=== PATIENT | female | born 1935 | race Caucasian/White ===

== ENCOUNTER 2016-11-22 09:39 | Inpatient (IN) | payer MEDICARE ==
[2016-11-22 10:51] LABS: Hematocrit 46 % (35-47); Hemoglobin 15.3 g/dl (12.0-16.0); Mean Corpuscular HGB Conc 34 g/dl (31-36); Mean Corpuscular Hemoglobin 31 pg (27-31); Mean Corpuscular Volume 92 fL (80-97); Mean Platelet Volume 9 um3 (7.4-10.4); Red Blood Count 4.94 10^6/ul (4.0-5.4); Red Cell Distribution Width 14 % (10.5-15)
[2016-11-22 11:12] LABS: ALT 54 U/L (7-52); Albumin 3.1 g/dL (3.2-5.2); Alkaline Phosphatase 165 U/L (34-104); BUN/Creatinine Ratio 44.6 (8-20); Blood Urea Nitrogen 37 mg/dL (6-24); C Reactive Protein 103.49 mg/L (< 5.00); CO2 Carbon Dioxide 20 mmol/L (22-32); Calcium 9.5 mg/dL (8.6-10.3); Chloride 110 mmol/L (101-111); EGFR African American 85.3 (>60); EGFR Non-African American 66.3 (>60); Globulin 4.7 g/dL (2-4); Glucose 133 mg/dL (70-100); Sodium 142 mmol/L (133-145); Total Protein 7.8 g/dL (6.4-8.9)
[2016-11-22 11:17] LABS: Urine Bacteria Absent (Absent); Urine Bilirubin Negative (Negative); Urine Glucose Negative (Negative); Urine Nitrite Negative (Negative)
[2016-11-22 11:18] LABS: Troponin I 0.52 ng/mL (<0.04)
[2016-11-22 11:21] LABS: Anion Gap 12 mmol/L (2-11)
[2016-11-22] MEDS ORDERED: NS 0.9% 1000 ML* 2,500 ML IV ONE (11:25)
[2016-11-22] MEDS ORDERED: Vancomycin(*) 1,500 MG in NS 0.9% 250 ML* 250 ML IVPB ONE (11:26)
[2016-11-22] MEDS ORDERED: Iohexol 300* (CONTRAST) 10 ML SDV IV ONE (11:35)
[2016-11-22 11:39] LABS: TSH (Thyroid Stimulating Horm) 2.47 mcIU/mL (0.34-5.60)
--- NOTE | 2016-11-22 11:51 | RAD ---
HISTORY: Altered mental status, confusion, sepsis COMPARISONS: February 06, 2010 VIEWS: 1: frontal portable view of the chest at 11:30 AM FINDINGS: LINES AND TUBES: None. CARDIOMEDIASTINAL SILHOUETTE: The cardiomediastinal silhouette is normal for portable technique. PLEURA: The costophrenic angles are sharp. No pleural abnormalities are noted. LUNG PARENCHYMA: The lungs are clear. ABDOMEN: The upper abdomen is clear. There is no subphrenic gas. BONES AND SOFT TISSUES: No bone or soft tissue abnormalities are noted. IMPRESSION: NO ACTIVE CARDIOPULMONARY DISEASE.
[2016-11-22 12:24] LABS: Magnesium 2.3 mg/dL (1.9-2.7)
--- NOTE | 2016-11-22 12:26 | RAD ---
HISTORY: Altered mental status, confusion COMPARISONS: None TECHNIQUE: Multiple contiguous axial CT scans were obtained of the head without intravenous contrast. FINDINGS: HEMORRHAGE/INFARCT: There is no hemorrhage or acute infarct. MASSES/SHIFT: There is no mass or shift. EXTRA-AXIAL SPACES: There are no extra-axial fluid collections. SULCI AND VENTRICLES: There is diffuse and proportional enlargement of the sulci and ventricles. CEREBRUM: There is hypoattenuation of the periventricular and subcortical white matter. BRAINSTEM: There are no focal parenchymal abnormalities. CEREBELLUM: There are no focal parenchymal abnormalities. VESSELS: The vessels are grossly normal. PARANASAL SINUSES: The paranasal sinuses are clear. ORBITS: The orbits are unremarkable. BONES AND SOFT TISSUE: No bone or soft tissue abnormalities are noted. OTHER: None IMPRESSION: NO ACUTE INTRACRANIAL PATHOLOGY. DIFFUSE INVOLUTIONAL CHANGE WITH CHRONIC SMALL VESSEL ISCHEMIC CHANGES.
[2016-11-22] MEDS ORDERED: NS 0.9% 250 ML* 500 ML ONE (12:43)
[2016-11-22 12:45] LABS: PCO2 Arterial 30 mmHg (35-45)
--- NOTE | 2016-11-22 12:50 | RAD ---
INDICATION: Sepsis and abdominal pain. COMPARISON: Comparison is made with a prior CT of the abdomen and pelvis from July 16, 2009. TECHNIQUE: A CT scan of the abdomen and pelvis was performed with intravenous and without oral contrast following intravenous injection of 100 ml of Omnipaque 300 nonionic contrast. Contiguous axial sections were obtained from the lung bases through the symphysis pubis. Images were reconstructed in the coronal and sagittal planes. FINDINGS: There are small dependent bilateral lower lobe infiltrates suggestive of atelectasis. No pleural effusion is present. The liver and spleen are within normal limits in size without significant focal abnormality. No calcified gallstones are seen. The pancreas appears to be within normal limits in size. The kidneys and adrenal glands are normal in size. No hydronephrosis is seen. No significant focal renal abnormality is seen. The aorta is normal in caliber and demonstrates homogeneous contrast opacification. The inferior vena cava is collapsed suggestive of low volume status. No significant enlarged retroperitoneal lymph nodes are seen. The stomach, small and large bowel appear nondistended. The patient is status post appendectomy by history. There is mild descending and sigmoid diverticulosis without evidence for diverticulitis. The uterus is retroverted and normal in size. No free intraperitoneal air or fluid is seen. There appears to be a chronic moderate compression fracture of the superior endplate of the L2 vertebral body and a subacute compression fracture of the inferior endplate of the L4 vertebral body. IMPRESSION: 1. NO EVIDENCE FOR ACUTE INTRA-ABDOMINAL ABNORMALITY OR CAUSE FOR THE PATIENT'S ABDOMINAL PAIN IS SEEN. 2. COLLAPSED INFERIOR VENA CAVA SUGGESTIVE OF LOW VOLUME STATUS. 3. SUBACUTE COMPRESSION FRACTURE OF THE INFERIOR ENDPLATE OF THE L4 VERTEBRAL BODY.
[2016-11-22 13:00] LABS: TSH (Thyroid Stimulating Horm) 2.39 mcIU/mL (0.34-5.60)
[2016-11-22 13:01] LABS: Free T4 1.16 ng/dL (0.61-1.12)
--- NOTE | 2016-11-22 15:31 | RAD ---
HISTORY: L4 fracture, incontinence COMPARISONS: CT dated November 22, 2016 TECHNIQUE: The following sequences were obtained of the lumbar spine: Sagittal and axial T1- and T2-weighted images, coronal T2-weighted images, and sagittal STIR images. FINDINGS: The study is limited by patient motion artifact. SPINAL CORD, CONUS, AND CAUDA EQUINA: The visualized spinal cord, conus, and cauda equina are normal in caliber, position, and signal intensity. ALIGNMENT: There is a mild scoliotic curvature of the spine. VERTEBRAL BODIES: There are Modic type I reactive end the changes at L4-L5. There is a large Schmorl's node versus chronic compression deformity of L2. There is no osseous retropulsion. There is multilevel anterolateral marginal osteophyte formation JOINTS: There is facet hypertrophy diffusely. MUSCULATURE: Unremarkable INTERVERTEBRAL DISCS: There is diffuse loss of intervertebral disc height and T2 signal throughout the spine. AXIAL IMAGES: L1-L2: There is bilateral facet hypertrophy. There is moderate left neural foraminal narrowing. There is no significant central canal stenosis.. L2-L3: There is a broad-based disc bulge with facet and ligamentous hypertrophy. There is moderate bilateral neural foraminal narrowing. There is moderate narrowing of the central canal. L3-L4: There is a broad-based disc bulge with ligamentous and facet hypertrophy. There is moderate bilateral neural foraminal narrowing. There is severe narrowing of the central canal. L4-L5: There is broad-based disc bulge. There is marginal osteophyte formation at the neural foramen bilaterally. There is severe bilateral neuroforaminal narrowing. There is no significant central canal stenosis. L5-S1: There is bilateral facet hypertrophy. There is no disc herniation, spinal stenosis, or neuroforaminal narrowing. SOFT TISSUES: The visualized soft tissues of the abdomen are unremarkable. OTHER: None. IMPRESSION: 1. DEGENERATIVE DISC DISEASE AND OSTEOARTHRITIS. 2. THERE IS SEVERE NARROWING OF THE CENTRAL CANAL AT L3-L4 WITH MODERATE NARROWING AT L2-L3. 3. THERE IS MULTILEVEL NEURAL FORAMINAL NARROWING DESCRIBED ABOVE
[2016-11-22] MEDS ORDERED: Diltiazem IV* 5 MG/ML 5 ML VIAL (for loading dose/IV Push) (25 MG) IV SLOW PU ONE ×3 (15:36→17:22)
[2016-11-22] MEDS ORDERED: Metoprolol Tartrate IV* 1 MG/ML 5 ML VIAL IV PRN (18:13)
[2016-11-22] MEDS ORDERED: NS 0.9% 1000 ML* 1,000 ML IV ONE (18:13)
[2016-11-22] MEDS ORDERED: Metoprolol Tartrate IV* 1 MG/ML 5 ML VIAL IV ONE (18:55)
[2016-11-22] MEDS ORDERED: Metoprolol Tartrate IV* 1 MG/ML 5 ML VIAL ONE (19:04)
[2016-11-22] MEDS: predniSONE TAB* 10 MG PO SCH (23:04)
[2016-11-22] MEDS: KCL 20 MEQ/100 ML IVPREMIX* 20 MEQ/100 ML BAG IV SCH (23:07)
[2016-11-22] MEDS: Heparin VIAL(*) 5000 UNITS/ML VIAL (FIVE THOUSAND) SUBCUT SCH (23:07)
--- NOTE | 2016-11-22 23:32 | HP ---
HISTORY AND PHYSICAL: DATE OF ADMISSION: 11/22/16 HISTORY OF PRESENT ILLNESS: Vern Bobo is a 81-year-old woman admitted to the hospital with new onset atrial fibrillation which converted in the emergency room, diffuse pain and unwillingness to get out of bed, worsening mental status and elevated CRP and dehydration. The patient has known Alzheimer 's disease. She was in her usual state of health until about 9 days ago. She and her went out to dinner and he states she was quieter than usual. After going to bed that night, she has not gotten out of bed since then. She seems to have diffuse pain and has been sleeping much of the time. She has been eating but not very much. Recent changes in her medication regimen, she had been started on alendronate in September and her sertraline had been increased to 100 mg a day because of obsessive behavior (from 75 mg a day). She had had a urinalysis on 11/08/16 when she was seen in the office, which was felt to be not a clean catch and so was not cultured. With change in mental status recently, she was treated with Cipro for 5 days with the thought that she might have a urinary tract infection. Because of these symptoms, I visited her at home yesterday. At that time, she complained of pain with any kind of movement. She was alert, smiling. No clear site of infection could be found. She did have a stage I decubitus ulcer. I bibi blood, which did show a markedly elevated CRP and so I suggested that she come to the emergency room today. When I saw her yesterday, she was noted to have an irregular heart rate and today she is in atrial fibrillation. In the ER, she was given diltiazem and Lopressor and has converted to normal sinus rhythm. She is admitted at this time. PAST MEDICAL HISTORY: Otherwise significant for the following medical problems: 1. Alzheimer's disease. 2. Hypothyroidism. 3. Osteopenia/osteoporosis with history of L2 compression fracture noted on . 4. History of anxiety disorder. 5. History of depression. 6. Diverticulosis. 7. History of allergies. 8. Internal hemorrhoids. 9. History of low back pain. 10. She has also been thought to have peripheral neuropathy in the past. PAST SURGICAL HISTORY: Includes appendectomy. CURRENT MEDICATIONS: 1. Cipro 250 mg twice a day for 5 days, started on 11/18/16. 2. Alendronate 70 mg weekly, started on 10/05/16. 3. Sertraline 100 mg daily. 4. Donepezil 10 mg daily. 5. Levothyroxine 75 mcg daily. 6. Vitamin C 500 mg daily. 7. Ibuprofen as needed. 8. Vitamin E 400 units daily. 9. Vitamin D3 1000 units daily. 10. Vitamin B complex with C 1 daily. ALLERGIES: EFFEXOR caused diarrhea, ERYTHROMYCIN caused diarrhea, and SULFA. HABITS: Tobacco, none. She is a former smoker, having smoked 2 cigarettes a day for 5 years many many years ago. She stopped smoking in 1958. She generally has 1 to 2 drinks of alcohol per day, not recent. She does not drink caffeinated beverages. FAMILY HISTORY: Noncontributory. SOCIAL AND PERSONAL HISTORY: The patient lives in her own home with her . An adult son lives in the home as well. There are 2 grandsons who were living with them until they went off to college this year. She is recently , just yesterday acquired a home health aide. REVIEW OF SYSTEMS: Generally, she has been weak, lying in bed. Appetite has not been her normal. She has not had fevers, chills, or sweats. Skin: She has been noted to have a stage I decubitus ulcer of her buttocks. HEENT: Negative. Nodes: Negative. Heme: Negative. Endocrine: She has hypothyroidism. Breasts: Negative. Respiratory: Negative. Cardiovascular: Negative. GI: Negative. : She has been incontinent of urine occasionally in the past, consistently in the past 9 days. Musculoskeletal: Everything seems to hurt. Neuro: See above. Psychiatric: See above. PHYSICAL EXAMINATION GENERAL: She is an elderly white female, lying flat in the bed, in no acute distress. VITAL SIGNS: Initial blood pressure on coming to the ER 91/75. Blood pressure has ranged from 76-159/58-112. Heart rate has ranged from 65 to 145 in the ER. Respirations 20, temperature afebrile, O2 sat 96%. SKIN: Shows a 1 x 2 cm stage I ulcer of the right buttocks. HEENT: Atraumatic, normocephalic. Full EOMs. Mouth: Pharynx, mucous membranes slightly dry. NECK: Supple. Thyroid palpable. Nodes, no adenopathy. CHEST: Clear. HEART: Initially irregularly irregular, then regular. No murmurs, gallops, or rubs. Pulses are full throughout. ABDOMEN: Soft with mild bilateral lower quadrant tenderness without masses or organomegaly. Bowel sounds are active. EXTREMITIES: Showed no cyanosis, clubbing, or edema. MUSCULOSKELETAL: She calls out with pain with movement of all of her extremities, but full range of motion of hips, no evidence of fracture. NEUROLOGIC: She is alert, not oriented. Cranial nerves seem intact. She does move all extremities. Sensory exam could not be performed. DTRs are 3+ symmetric with clonus. Babinski sign negative. She did not get up to walk. DIAGNOSTIC STUDIES/LAB DATA: CBC: WBC 14, H and H 15.3/46, MCV 92, PLT 230, 000. Yesterday, white count was 12.9 and hematocrit was 45. ABGs: pH 7.50, pCO2 30, pO2 67. Chemistries: Sodium 142, potassium 3.4, chloride 100, CO2 20 , BUN/creatinine 37/0.83. Glucose 133, lactic acid 1.8, magnesium 2.3. Rest of the comprehensive metabolic panel was abnormal for AST 36, ALT 54, alk phos 165. Troponins are 0.52, repeat 0.42. BNP 177. Globulin elevated at 4.7. TSH normal at 2.47, free T4 1.16. Imaging: Brain CT showed no acute intracranial pathology, diffuse involutional change with chronic small vessel disease. Chest x-ray showed no acute disease. Abdomen and pelvis CT showed no acute disease. She did have a collapsed inferior vena cava suggesting of low volume status and subacute compression fracture of the inferior end-plate of the L4 vertebral body. She did have bilateral lower lobe infiltrate suggestive of atelectasis, but no pleural effusion was seen. There was no evidence of pneumonia. She did have diverticulosis without diverticulitis. Lumbar spine MRI showed degenerative disk disease and osteoarthritis. She did have spinal stenosis at L3-4 and moderate narrowing at L2-3. EKG at 1139 showed atrial fibrillation with uncontrolled ventricular response and EKG at 1003 showed she had converted to sinus rhythm. IMPRESSION: The patient with recent decline in physical status and mental status in the setting of fairly significant Alzheimer's disease. She had transient atrial fibrillation in the emergency room, which converted to sinus rhythm after getting multiple doses of diltiazem and then metoprolol. Her diffuse pain may be due to polymyalgia rheumatica. This would explain her elevated CRP. She does have volume depletion. She is going to have her volume repleted. She is going to get IV fluids. We will replete her potassium. The plan is to monitor on telemetry now. A transthoracic echocardiogram has been ordered. I will give her Lopressor [id number], hold for pulse less than 60. Her troponins will be followed, but already trending downwards. She will get heparin for DVT prophylaxis. MOLST form was completed with her and she is DNR/DNI. I am going to give her a small dose of prednisone to see how she responds to that. Her globulins are elevated. I will do serum protein electrophoresis immunofixation. I will follow her sed rate. I will follow her C-reactive protein. I have ordered a physical therapy evaluation for the morning. Tegaderm will be used for her stage I ulcer. [id number]/[facility] #: [id number] [place]
[2016-11-23] MEDS: KCL 20 MEQ/100 ML IVPREMIX* 20 MEQ/100 ML BAG IV SCH (01:07)
[2016-11-23] MEDS: NS 0.9% w/ 20 Meq KCL 1000 ML* 1,000 ML IV SCH ×2 (03:16→14:22)
[2016-11-23 05:25] LABS: Hematocrit 39 % (35-47); Hemoglobin 12.9 g/dl (12.0-16.0); Mean Corpuscular HGB Conc 33 g/dl (31-36); Mean Corpuscular Hemoglobin 31 pg (27-31); Mean Corpuscular Volume 94 fL (80-97); Mean Platelet Volume 9 um3 (7.4-10.4); Red Blood Count 4.12 10^6/ul (4.0-5.4); Red Cell Distribution Width 14 % (10.5-15)
[2016-11-23 05:36] LABS: Albumin 2.7 g/dL (3.2-5.2); BUN/Creatinine Ratio 38.4 (8-20); C Reactive Protein 67.42 mg/L (< 5.00); Calcium 8.5 mg/dL (8.6-10.3); EGFR African American 98.9 (>60); EGFR Non-African American 76.9 (>60); Globulin 3.3 g/dL (2-4); Magnesium 2.1 mg/dL (1.9-2.7); Phosphorus 2.8 mg/dL (2.5-5.0); Potassium 3.9 mmol/L (3.5-5.0); Total Bilirubin 0.5 mg/dL (0.2-1.0)
[2016-11-23] MEDS: Heparin VIAL(*) 5000 UNITS/ML VIAL (FIVE THOUSAND) SUBCUT SCH ×3 (05:44→21:10)
[2016-11-23] MEDS: Metoprolol Tartrate TAB* 25 MG PO SCH ×2 (05:45→14:22)
[2016-11-23] MEDS: Levothyroxine TAB* 75 MCG TAB PO SCH (05:45)
[2016-11-23 05:48] LABS: Troponin I 0.22 ng/mL (<0.04)
[2016-11-23 07:02] LABS: Erythrocyte Sed Rate 37 mm/Hr (0-40)
[2016-11-23] MEDS: Sertraline* 100 MG TAB PO SCH (09:02)
[2016-11-23] MEDS: predniSONE TAB* 10 MG PO SCH ×2 (09:02→21:10)
[2016-11-23] MEDS: Donepezil TAB* 5 MG PO SCH (09:02)
--- NOTE | 2016-11-23 13:25 | ED ---
Trace Chavira Nilda, scribed for Yao Rojas MD on 11/22/16 at 1123 . Altered Mental Status - HPI Summary HPI Summary: This patient is a 81 year old F BIBA presenting to [facility] accompanied by with a chief complaint of sudden constant weakness over the course of 1.5 weeks. Yesterday, patient visited PCP who advised that the patient visit the ED for possible UTI. also notes that patient has been noncompliant with thyroid medication although according to PCP, the thyroid labs were unremarkable.The patient rates the pain 0/10 in severity. Symptoms aggravated by movement. Symptoms alleviated by nothing. Per , patient has confusion , fatigue, urinary and bowel incontinence, stiff neck (has been lying in bed a lot), loss of appetite, bed sore on skin (past few days), and lack of BM (5-7 days). Patient reports sore throat and denies recent falls, CP, soreness, SOB, and headache. PMHx includes hypothyroidism and Alzheimers. Patient is finishing 5th day of Cipro treatment. 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 - Onset/Duration: Still Present, Suddenly Timing: Constant Severity Currently: Moderate Character: Confusion Aggravating Factor(s): Other - movement Alleviating Factor(s): Nothing Associated Signs And Symptoms: Positive: Weakness Related History: Other: - Alzheimer's and Hypothyroidism - Allergies/Home Medications Allergies/Adverse Reactions: Allergies Allergy/AdvReac Type Severity Reaction Status Date / Time Erythromycin Allergy Unknown Verified 11/22/16 22:16 Reaction Details Sulfa Antibiotics Allergy Unknown Verified 11/22/16 22:16 Reaction Details Venlafaxine [From Effexor] Allergy Unknown Verified 11/22/16 22:16 Reaction Details Home Medications: Home Medications Ascorbic Acid [Vitamin C/[place] 500 mg] 1 tab PO DAILY 11/22/16 [History Confirmed 11/22/16] Cholecalciferol [Vitamin D] 1,000 unit PO DAILY 11/22/16 [History Confirmed 05/06] Ciprofloxacin TAB* [Cipro 250 MG Tab*] 250 mg PO BID 11/22/16 [History Confirmed 11/22/16] Donepezil TAB* [Aricept 5 MG TAB*] 10 mg PO DAILY 11/22/16 [History Confirmed ] Memantine XR CAP* [Namenda XR CAP*] 28 mg PO DAILY 11/22/16 [History Confirmed 11/22/16] Sertraline* [Zoloft*] 75 mg PO DAILY 11/22/16 [History Confirmed 11/22/16] Vitamin E CAP* 400 unit PO DAILY 11/22/16 [History Confirmed 11/22/16] PMH/Surg Hx/FS Hx/Imm Hx Endocrine/Hematology History: Denies: Hx Diabetes, Hx Thyroid Disease Cardiovascular History: Denies: Hx Hypertension Respiratory History: Denies: Hx Asthma, Hx Chronic Obstructive Pulmonary Disease (COPD) GI History: Denies: Hx Ulcer Musculoskeletal History: Denies: Hx Osteoporosis - Cancer History Hx Chemotherapy: No Hx Radiation Therapy: No - Surgical History Surgery Procedure, Year, and Place: Appendectomy 30 yrs ago Infectious Disease History: No Infectious Disease History: Denies: Hx Clostridium Difficile, Hx Hepatitis, Hx Human Immunodeficiency Virus (HIV), Hx of Known/Suspected MRSA, Hx Shingles, Hx Tuberculosis, Hx Known/ Suspected VRE, Hx Known/Suspected VRSA, History Other Infectious Disease, Traveled Outside the [place] in Last 30 Days - Family History Known Family History: Negative: Hypertension, Diabetes - Social History Alcohol Use: Daily Substance Use Type: Reports: None Smoking Status (MU): Former Smoker Review of Systems Positive: Fatigue. Negative: Fever, Chills Negative: Erythema Positive: Sore Throat Negative: Chest Pain Negative: Shortness Of Breath, Cough Positive: Other - no BM for 5-7 days, loss of appetite. Negative: Abdominal Pain, Vomiting, Nausea Positive: incontinence - urinary and bowel. Negative: dysuria, hematuria Positive: Other - stiff neck. Negative: Myalgia, Edema Positive: Other - bed sore on back side. Negative: Rash Neurological: Other - confusion; negative dizziness, recent falls Positive: Weakness. Negative: Headache All Other Systems Reviewed And Are Negative: Yes Physical Exam - Summary Physical Exam Summary: Constitutional: Well-developed, Well-nourished, Alert. (-) Distressed Skin: Warm, Dry, Stage 1 8cm by 8cm sacral decubitus with no warmth or erythema HENT: Normocephalic; Atraumatic Eyes: Conjunctiva normal Neck: Musculoskeletal ROM normal neck. (-) JVD, (-) Stridor, (-) Tracheal deviation Cardio: Rhythm regular, tachycardic, Heart sounds normal; Intact distal pulses; The pedal pulses are 2+ and symmetric. Radial pulses are 2+ and symmetric. (-) Murmur Pulmonary/Chest wall: Effort normal. (-) Respiratory distress, (-) Wheezes, Crackles and rhonchi left lower lung field Abd: Soft, (-) Tenderness, (-) Distension, (-) Guarding, (-) Rebound Musculoskeletal: (-) Edema Lymph: (-) Cervical adenopathy Neuro: Alert, Confused Psych: Mood and affect Normal Triage Information Reviewed: Yes Vital Signs On Initial Exam: Initial Vitals Temp Pulse Resp BP Pulse Ox 97 F 65 16 91/75 98 11/22/16 09:50 11/22/16 09:50 11/22/16 09:50 11/22/16 09:50 11/22/16 09:50 Vital Signs Reviewed: Yes - [place] Coma Scale Coma Scale Total: 14 Diagnostics - Vital Signs Vital Signs Temp Pulse Resp BP Pulse Ox 11/22/16 11:00 58 97 11/22/16 10:30 53 105/58 97 11/22/16 10:00 109 97/61 94 11/22/16 09:50 97 F 65 16 91/75 98 - Laboratory Lab Results: Lab Results 11/22/16 11/22/16 11/22/16 Range/Units 10:30 10:30 10:30 WBC 14.0 H (3.5-10.8) 10^3/ul RBC 4.94 (4.0-5.4) 10^6/ul Hgb 15.3 (12.0-16.0) g/dl Hct 46 (35-47) % MCV 92 (80-97) fL MCH 31 (27-31) pg MCHC 34 (31-36) g/dl RDW 14 (10.5-15) % Plt Count 230 (150-450) 10^3/ul MPV 9 (7.4-10.4) um3 Neut % (Auto) 79.8 (38-83) % Lymph % (Auto) 15.5 L (25-47) % [place] % (Auto) 3.6 (1-9) % Eos % (Auto) 0.6 (0-6) % Baso % (Auto) 0.5 (0-2) % Absolute Neuts (auto) 11.1 H (1.5-7.7) 10^3/ul Absolute Lymphs (auto) 2.2 (1.0-4.8) 10^3/ul Absolute Monos (auto) 0.5 (0-0.8) 10^3/ul Absolute Eos (auto) 0.1 (0-0.6) 10^3/ul Absolute Basos (auto) 0.1 (0-0.2) 10^3/ul Absolute Nucleated RBC 0.01 10^3/ul Nucleated RBC % 0.1 Sodium 142 (133-145) mmol/L Potassium Pending Chloride 110 (101-111) mmol/L Carbon Dioxide 20 L (22-32) mmol/L Anion Gap Pending BUN 37 H (6-24) mg/dL Creatinine 0.83 (0.51-0.95) mg/dL Est GFR ( Amer) 85.3 (>60) Est GFR (Non-Af Amer) 66.3 (>60) BUN/Creatinine Ratio 44.6 H (8-20) Glucose 133 H (70-100) mg/dL Lactic Acid 1.8 (0.5-2.0) mmol/L Calcium 9.5 (8.6-10.3) mg/dL Magnesium Pending Total Bilirubin 0.60 (0.2-1.0) mg/dL AST Pending ALT 54 H (7-52) U/L Alkaline Phosphatase 165 H (34-104) U/L Troponin I 0.52 H* (<0.04) ng/mL C-Reactive Protein 103.49 H (< 5.00) mg/L Total Protein 7.8 (6.4-8.9) g/dL Albumin 3.1 L (3.2-5.2) g/dL Globulin 4.7 H (2-4) g/dL Albumin/Globulin Ratio 0.7 L (1-3) TSH Pending Urine Color Urine Appearance Urine pH (5-9) Ur Specific [place] (1.010-1.030) Urine Protein (Negative) Urine Ketones (Negative) Urine Blood (Negative) Urine Nitrate (Negative) Urine Bilirubin (Negative) Urine Urobilinogen (Negative) Ur Leukocyte Esterase (Negative) Urine WBC (Auto) (Absent) Urine RBC (Auto) (Absent) Urine Bacteria (Absent) Hyaline Casts (Absent) Urine Glucose (Negative) Urine Ascorbic Acid (Negative) 11/22/16 Range/Units 10:55 WBC (3.5-10.8) 10^3/ul RBC (4.0-5.4) 10^6/ul Hgb (12.0-16.0) g/dl Hct (35-47) % MCV (80-97) fL MCH (27-31) pg MCHC (31-36) g/dl RDW (10.5-15) % Plt Count (150-450) 10^3/ul MPV (7.4-10.4) um3 Neut % (Auto) (38-83) % Lymph % (Auto) (25-47) % [place] % (Auto) (1-9) % Eos % (Auto) (0-6) % Baso % (Auto) (0-2) % Absolute Neuts (auto) (1.5-7.7) 10^3/ul Absolute Lymphs (auto) (1.0-4.8) 10^3/ul Absolute Monos (auto) (0-0.8) 10^3/ul Absolute Eos (auto) (0-0.6) 10^3/ul Absolute Basos (auto) (0-0.2) 10^3/ul Absolute Nucleated RBC 10^3/ul Nucleated RBC % Sodium (133-145) mmol/L Potassium Chloride (101-111) mmol/L Carbon Dioxide (22-32) mmol/L Anion Gap BUN (6-24) mg/dL Creatinine (0.51-0.95) mg/dL Est GFR ( Amer) (>60) Est GFR (Non-Af Amer) (>60) BUN/Creatinine Ratio (8-20) Glucose (70-100) mg/dL Lactic Acid (0.5-2.0) mmol/L Calcium (8.6-10.3) mg/dL Magnesium Total Bilirubin (0.2-1.0) mg/dL AST ALT (7-52) U/L Alkaline Phosphatase (34-104) U/L Troponin I (<0.04) ng/mL C-Reactive Protein (< 5.00) mg/L Total Protein (6.4-8.9) g/dL Albumin (3.2-5.2) g/dL Globulin (2-4) g/dL Albumin/Globulin Ratio (1-3) TSH Urine Color [place] Urine Appearance Cloudy Urine pH 5.0 (5-9) Ur Specific [place] 1.029 (1.010-1.030) Urine Protein 1+(30 mg/dl) H (Negative) Urine Ketones Negative (Negative) Urine Blood Negative (Negative) Urine Nitrate Negative (Negative) Urine Bilirubin Negative (Negative) Urine Urobilinogen Negative (Negative) Ur Leukocyte Esterase Negative (Negative) Urine WBC (Auto) 1+(6-10/hpf) H (Absent) Urine RBC (Auto) 3+(>10/hpf) H (Absent) Urine Bacteria Absent (Absent) Hyaline Casts Present H (Absent) Urine Glucose Negative (Negative) Urine Ascorbic Acid * H (Negative) Result Diagrams: 11/23/16 04:41 11/23/16 04:41 Lab Statement: Any lab studies that have been ordered have been reviewed, and results considered in the medical decision making process. - Radiology CXR Radiology Interpretation Completed By: Radiologist - CXR reveals no active cardiopulmonary disease. ED physician has reviewed this radiology report and agrees. - CT Brain CT Interpretation Completed By: Radiologist - No acute intracranial pathology. Diffuse involutional change with chronic small vessel ischemic changes. ED physician has reviewed this radiology report and agrees. Abdomen CT Interpretation Completed By: Radiologist - 1. NO EVIDENCE FOR ACUTE INTRA- ABDOMINAL ABNORMALITY OR CAUSE FOR THE PATIENT'S ABDOMINAL PAIN IS SEEN. 2. COLLAPSED INFERIOR VENA CAVA SUGGESTIVE OF LOW VOLUME STATUS. 3. SUBACUTE COMPRESSION FRACTURE OF THE INFERIOR ENDPLATE OF THE L4 VERTEBRAL BODY. ED physician has reviewed this radiology report and agrees. L-spine CT Interpretation Completed By: Radiologist - 1. DEGENERATIVE DISC DISEASE AND OSTEOARTHRITIS. 2. THERE IS SEVERE NARROWING OF THE CENTRAL CANAL AT L3-L4 WITH MODERATE NARROWING AT L2-L3. 3. THERE IS MULTILEVEL NEURAL FORAMINAL NARROWING DESCRIBED ABOVE. ED physician has reviewed this radiology report and agrees. - EKG 1143 Cardiac Rate: Tachycardia - 150 bpm EKG Rhythm: Atrial Fibrillation - Atrial Fibrillation with rapid v-rate EKG Interpretation: No STEMI 2006 Cardiac Rate: NL - 58 bpm EKG Rhythm: Sinus Rhythm EKG Interpretation: No STEMI Re-Evaluation - Re-Evaluation First Eval Re-Evaluation Time: 13:25 Comment: [13:25] Re-eval: ED Physician discussed lab reports and re-examined patient. Re-exam: Patient is unwilling and unable to lift right heel off bed. She is somewhat uncooperative. There are no other focal deficits on neuro exam. Second Eval Re-Evaluation Time: 14:27 Change: Unchanged Altered Mental Statu Course/Dx - Course Assessment/Plan: This patient is a 81 year old F BIBA presenting to [facility] accompanied by with a chief complaint of sudden constant weakness over the course of 1.5 weeks. Yesterday, patient visited PCP who advised that the patient visit the ED for possible UTI. also notes that patient has been noncompliant with thyroid medication although according to PCP, the thyroid labs were unremarkable.The patient rates the pain 0/10 in severity. Symptoms aggravated by movement. Symptoms alleviated by nothing. Per , patient has confusion, fatigue, urinary and bowel incontinence, stiff neck (has been lying in bed a lot), loss of appetite, bed sore on skin (past few days), and lack of BM (5-7 days). Patient reports sore throat and denies recent falls, CP, soreness, SOB, and headache. PMHx includes hypothyroidism and Alzheimers. Patient is finishing 5th day of Cipro treatment. EKG [1143] reveals A fib with rapid v-rate, 150 bpm, no STEMI. EKG [2007] reveals NSR, 58 bpm, No STEMI. CXR , per radiologist, reveals no active cardiopulmonary disease. ED physician has reviewed this radiology report and agrees. Brain CT, per radiologist, reveals no acute intracranial pathology. Diffuse involutional change with chronic small vessel ischemic changes. ED physician has reviewed this radiology report and agrees. Abdomen CT , per radiologist, reveals MPRESSION: 1. NO EVIDENCE FOR ACUTE INTRA-ABDOMINAL ABNORMALITY OR CAUSE FOR THE PATIENT'S ABDOMINAL. PAIN IS SEEN. 2. COLLAPSED INFERIOR VENA CAVA SUGGESTIVE OF LOW VOLUME STATUS. 3. SUBACUTE COMPRESSION FRACTURE OF THE INFERIOR ENDPLATE OF THE L4 VERTEBRAL BODY. ED physician has reviewed this radiology report and agrees. Lumbar spine CT. 1. DEGENERATIVE DISC DISEASE AND OSTEOARTHRITIS. 2. THERE IS SEVERE NARROWING OF THE CENTRAL CANAL AT L3-L4 WITH MODERATE NARROWING AT. L2-L3. 3. THERE IS MULTILEVEL NEURAL FORAMINAL NARROWING DESCRIBED ABOVE. ED physician has reviewed this radiology report and agrees. Troponin I 0.42. [13: 25] Re-eval discussing lab reports and re-examination. Re-exam: Patient is unwilling and unable to lift right heel off bed. She is somewhat uncooperative. There are no other focal deficits on neuro exam. [1545] Consult with Dr. García (Dynamometer Repairer) who is aware of patient's elevated troponin and A-fib with rapid ventricular response. [1628] Consult with Dr. Bolton (PCP): ED physician discussed diagnostic findings. She agrees with the plan and requested that ED physician place transition order to the Telemetry Unit. - Diagnoses Discharge Diagnoses: Atrial fibrillation with RVR, Sepsis, Weakness - Provider Notifications Discussed Care Of Patient With: Chad García - Cardiology Time Discussed With Above Provider: 15:45 Instructed by Provider To: Other - Aware of patient's elevated troponin and A- fib with rapid ventricular response. - Critical Care Time Critical Care Time: 75-104 min - 90 minutes CCT Discharge - Discharge Plan Condition: Good Disposition: ADMITTED TO [facility] The documentation as recorded by the Trace kasper Nilda accurately reflects the service I personally performed and the decisions made by , Yao Rojas MD.
--- NOTE | 2016-11-23 16:06 | CONS ---
CONSULTATION REPORT: DATE OF CONSULT: DATE OF DICTATION: 11/23/16 PATIENT OF: Dr. Tata Bolton. HISTORY OF PRESENT ILLNESS: This is a 81-year-old woman who I am asked to evaluate for change in mental status and walking issues. Of note, she has longstanding Alzheimer's which has been progressing and has been followed by Dr. Bolton and Dr. Rossi. She has also had a worsening mental status prior to her hospitalization yesterday and this persisted through yesterday and this morning. I saw her about 3/4 of an hour ago and her nurse I brought into the room and said that she looks better in this morning and then at the end of the visit, her and son came in and said that she was back to her baseline mental status and she was back to her usual level of alertness. She had been lethargic in addition to worsening confusion. In addition, she had been complaining of pain with any movement and had decreased walking. She is not complaining of pain on this evaluation. PAST MEDICAL HISTORY: Significant for Alzheimer's disease, hypothyroidism, osteopenia, osteoporosis, history of anxiety disorder, history of depression, diverticulitis, history of allergies, internal hemorrhoids, low back pain, and was found to have a peripheral neuropathy in the past. PAST SURGICAL HISTORY: She is status post an appendectomy in the past. MEDICATIONS: Her recent medicine changes were starting on alendronate in September and Sertraline was increased from 75 mg to a 100 mg recently. Medications currently include: 1. Cipro 250 twice a day started 11/18/16. 2. Alendronate 70 mg weekly. 3. Sertraline 100 mg daily. 4. Donepezil 10 mg daily. 5. Levothyroxine 75 mcg daily. 6. Ibuprofen p.r.n. 7. Vitamins daily. ALLERGIES: Include EFFEXOR, ERYTHROMYCIN and SULFA. FAMILY HISTORY: Noncontributory. SOCIAL HISTORY: She does not smoke currently. She smoked 2 cigarettes a day for 5 years many years ago. She in the past drank 1 to 2 drinks of alcohol a day, not recently. She lives in her own house with her and an adult son. REVIEW OF SYSTEMS: Significant for atrial fibrillation just noted in the emergency room this hospitalization. She has been incontinent of urine in the past, worse in the past 9 days. PHYSICAL EXAM: Temperature 96.8, pulse 70, respirations 20, blood pressure 122/ 74. She was alert, without any lethargy. She knew her name. She did not know her age. She did not say that she was in the hospital, but seemed to have understanding that she was in the hospital when I gave have her choices. She spoke in short sentences and could follow 1-step commands, but not consistently and with some perseveration. Cranial nerves II through XII were intact. Motor Exam: She moved all extremities with power, but not to full followthrough or cooperation. I asked her to stand with 2 people to assist her. She instead of just standing up, was confused in terms of how to push up against the chair and she also when was asked to stand, she would bring her left leg forward rather than just standing. She did not stand for us as she was not told to stand because she said she would be in pain if she stood and she pointed to her back at that point. Sensation grossly intact to light touch and is hard to assess because of poor understanding. Reflexes were 1 and equal. Toes were equivocal to downgoing. DIAGNOSTIC STUDIES/LAB DATA: I reviewed her CT scan which showed diffuse atrophy. I reviewed her MRI scan which showed significant osteoarthritis, degenerative disk disease with severe central canal narrowing at the L3-4 with moderate stenosis elsewhere and significant multilevel neuroforaminal stenosis. Labs include white count of 12 with normal CBC, sed rate of 37. Blood gas of 7.5, pCO2 of 30, pO2 67. Most recent CMP had a sodium 146, bicarb of 118, BUN of 28, creatinine 0.73, her BUN was initially 37, her lactic acid was 1.8, calcium of 8.5. Normal magnesium, liver function tests. Troponin was 0.22. Alk phos was 129. Her initial ALT was 54. Her TSH was 2.39, T4 was 1.16. UA, 1+ protein, 1+ white cells, but negative leuk esterase. Negative influenza A and B. IMPRESSION: I am not sure why Vern was more lethargic and confused than usual yesterday and this morning, but she is apparently back to her baseline at this point. I do not feel any further testing needs to be done. I had asked Dr. Bolton to initially get an MRI scan of her brain given her new onset of AFib if she was confused and with limited exam, it would be reasonable to check for stroke if symptoms were persistent to get answers. I discussed with the family that it is unlikely that this is a stroke since there was no focality to her symptoms and that somebody with Alzheimer's can fluctuate. Even if we found stroke with AFib, she would not be a good anticoagulation candidate given her walking difficulties and confusion and this does not sound like somebody who has had a stroke. I think she clearly is having difficulty doing exactly of planning for her walking in terms of when she goes to stand, instead of standing, she puts one left foot forward, and so I think it is one reason she had difficulty with ambulation is because of her Alzheimer's. She has very significant low back disease, which can also be causing her pain and difficulty walking, but this is a diffuse process where surgery would be particularly difficult and she would be a poor candidate given her neurological and other problems and the family does not want aggressive intervention such as aggressive back surgery. I will be speaking to Dr. Bolton. Thank you for sharing her case. [id number]/[facility] #: [id number] [place]IC[place]
--- NOTE | 2016-11-23 16:11 | ECHO ---
Patient: TOMER FORMAN [facility] Rec#: [id number] : 1935 Date: 11/23/2016 Age: 81y Height: 180.3 cm / 71.0 in Weight: 74.8 kg / 164.9 lbs Sex: F BSA: 1.9 Room#: 435 Admit Date#: 11/22/2016 Type: Inpatient Referring: Tata Bolton MD Reading: Fadia Apodaca MD Route Sales Representative: Elvia Issa RN RDCS Transthoracic Echocardiogram Indication: Atrial fibrillation BP: 122/74 HR: 68 Rhythm: NSR Findings History: Hypothyroidism, Alzheimer's disease Technical Comments: The study quality is fair. The study is technically limited due to poor apical windows. Completed at 1605. Left Ventricle: The left ventricular chamber size is decreased. Mild concentric left ventricular hypertrophy is observed. Global left ventricular wall motion and contractility are within normal limits. There is normal left ventricular systolic function. The estimated ejection fraction is 55-60%. Abnormal left ventricular diastolic filling is observed, consistent with impaired relaxation. Left Atrium: The left atrial chamber size is normal. Right Ventricle: The right ventricular chamber size and systolic function are within normal limits. Right Atrium: The right atrium is slightly dilated. Aortic Valve: The aortic valve is trileaflet. The aortic valve leaflets are mildly thickened. There is a trace of aortic regurgitation. There is no evidence of aortic stenosis. Mitral Valve: The mitral valve leaflets are mildly thickened. There is mild mitral regurgitation. The mitral regurgitant jet is posteriorly directed. There is no evidence of mitral stenosis. Tricuspid Valve: The tricuspid valve leaflets are normal. There is mild tricuspid regurgitation. No pulmonary hypertension is noted. There is no tricuspid stenosis. Pulmonic Valve: The pulmonic valve appears normal. There is trace to mild pulmonic regurgitation. There is no pulmonic stenosis. Pericardium: There is no significant pericardial effusion. A pericardial fat pad is visualized. Aorta: There is no dilatation of the ascending aorta. There is no dilatation of the aortic arch. There is no dilation of the aortic root. Pulmonary Artery: The main pulmonary artery is not well visualized. Venous: The inferior vena cava appears normal in size. There is less than 50% respiratory change in the inferior vena cava dimension. Conclusions Mild concentric left ventricular hypertrophy is observed. Global left ventricular wall motion and contractility are within normal limits. The estimated ejection fraction is 55-60%. Abnormal left ventricular diastolic filling is observed, consistent with impaired relaxation. The right ventricular chamber size and systolic function are within normal limits. The aortic valve leaflets are mildly thickened. There is a trace of aortic regurgitation. There is mild mitral regurgitation. There is mild tricuspid regurgitation. No prior echo to compare. Technically difficult but adquate for evaluation. Measurements Name Value Normal Range RVDdMajor (2D) 3.4 cm (2.2 - 4.4) RAd ISD 4CH 5 cm (3.4 - 4.9) RA (A4C)W 3.5 cm (2.9 - 4.6) IVSd (2D) 1.2 cm (0.6 - 1) LVPWd (2D) 1.1 cm (0.6 - 1) LVIDd (2D) 3.3 cm (3.6 - 5.4) LVIDs (2D) 2.1 cm - LV FS (2D) 33 % (25 - 45) Aortic Annulus 2 cm (1.4 - 2.6) Ao root diameter (2D) 3.4 cm (2.1 - 3.5) Ascending Ao 3.1 cm (2.1 - 3.4) Aortic arch 2.9 cm (1.8 - 3.4) LA dimension (AP) 2D 2.8 cm (2.3 - 3.8) LAd ISD 4CH 5 cm (2.9 - 5.3) LA ISD 4CH W 4 cm (2.5 - 4.5) Name Value Normal Range LA ESV SP 4CH (A/L) 37 ml - LA ESV SP 2CH (A/L) 26 ml - LA ESV BP (A/L) 34 ml - LA ESV BP (A/L) index 17.3 ml/m2 - LA ESV SP 4CH (MOD) 33 ml - LA ESV SP 2CH (MOD) 24 ml - Name Value Normal Range MV E-wave Vmax 0.65 m/sec - MV deceleration time 186 msec - MV A-wave Vmax 0.82 m/sec - MV E:A ratio 0.79 ratio - LV septal e' Vmax 0.07 m/sec - LV lateral e' Vmax 0.7 m/sec - LV E:e' septal ratio 9.3 ratio - LV E:e' lateral ratio 9.3 ratio - Name Value Normal Range AV Vmax 1.3 m/sec - AV VTI 27.9 cm - AV peak gradient 7.2 mmHg - AV mean gradient 3.8 mmHg - LVOT Vmax 0.98 m/sec - LVOT VTI 23.4 cm - LVOT peak gradient 3.9 mmHg - LVOT mean gradient 2.3 mmHg - DAMION Vmax 0.74 m/sec - Name Value Normal Range TR Vmax 2.3 m/sec - TR peak gradient 21 mmHg - RAP 8 mmHg - RVSP 29 mmHg - IVC diameter 1 cm - Name Value Normal Range PV Vmax 0.57 m/sec -
[2016-11-24] MEDS: NS 0.9% w/ 20 Meq KCL 1000 ML* 1,000 ML IV SCH (00:47)
[2016-11-24 04:47] LABS: Hematocrit 36 % (35-47); Hemoglobin 11.9 g/dl (12.0-16.0); Mean Corpuscular HGB Conc 33 g/dl (31-36); Mean Corpuscular Hemoglobin 31 pg (27-31); Mean Corpuscular Volume 94 fL (80-97); Mean Platelet Volume 9 um3 (7.4-10.4); Red Blood Count 3.82 10^6/ul (4.0-5.4); Red Cell Distribution Width 14 % (10.5-15); White Blood Count 10.4 10^3/ul (3.5-10.8)
[2016-11-24 05:01] LABS: Albumin 2.7 g/dL (3.2-5.2); BUN/Creatinine Ratio 31.5 (8-20); C Reactive Protein 53.14 mg/L (< 5.00); Calcium 8.6 mg/dL (8.6-10.3); EGFR African American 98.9 (>60); EGFR Non-African American 76.9 (>60); Globulin 3.2 g/dL (2-4); Total Bilirubin 0.5 mg/dL (0.2-1.0); Total Protein 5.9 g/dL (6.4-8.9)
[2016-11-24 05:37] LABS: Erythrocyte Sed Rate 33 mm/Hr (0-40)
[2016-11-24] MEDS: Levothyroxine TAB* 75 MCG TAB PO SCH (05:40)
[2016-11-24] MEDS: Heparin VIAL(*) 5000 UNITS/ML VIAL (FIVE THOUSAND) SUBCUT SCH ×3 (05:40→21:42)
[2016-11-24] MEDS ORDERED: Influenza VAC *QUAD* 2017-18* 0.5 ML SYRINGE IM ONE (09:00)
[2016-11-24] MEDS: Donepezil TAB* 5 MG PO SCH (09:20)
[2016-11-24] MEDS: Sertraline* 100 MG TAB PO SCH (09:21)
[2016-11-24] MEDS: predniSONE TAB* 10 MG PO SCH ×2 (09:21→21:42)
[2016-11-24 13:42] LABS: Rheumatoid Factor <15 IU/mL (<15)
[2016-11-24 16:20] LABS: Albumin 2.1 g/dL (3.4-4.7); Gamma Globulin 1.1 g/dL (0.6-1.6); Total Protein(PEP) 5.9 g/dL (6.3 - 7.9)
[2016-11-25] MEDS: Levothyroxine TAB* 75 MCG TAB PO SCH (05:34)
[2016-11-25] MEDS: Heparin VIAL(*) 5000 UNITS/ML VIAL (FIVE THOUSAND) SUBCUT SCH ×3 (05:34→21:20)
[2016-11-25 05:36] LABS: Hematocrit 35 % (35-47); Hemoglobin 12.1 g/dl (12.0-16.0); Mean Corpuscular HGB Conc 34 g/dl (31-36); Mean Corpuscular Hemoglobin 32 pg (27-31); Mean Corpuscular Volume 92 fL (80-97); Mean Platelet Volume 9 um3 (7.4-10.4); Red Blood Count 3.83 10^6/ul (4.0-5.4); Red Cell Distribution Width 14 % (10.5-15); White Blood Count 8.9 10^3/ul (3.5-10.8)
[2016-11-25 05:51] LABS: BUN/Creatinine Ratio 26.7 (8-20); C Reactive Protein 36.06 mg/L (< 5.00); Calcium 8.4 mg/dL (8.6-10.3); EGFR African American 95.9 (>60); EGFR Non-African American 74.5 (>60); Potassium 3.5 mmol/L (3.5-5.0)
[2016-11-25 06:43] LABS: Erythrocyte Sed Rate 31 mm/Hr (0-40)
[2016-11-25] MEDS: predniSONE TAB* 10 MG PO SCH ×2 (09:03→21:21)
[2016-11-25] MEDS: Sertraline* 100 MG TAB PO SCH (09:03)
[2016-11-25] MEDS: Donepezil TAB* 5 MG PO SCH (09:03)
[2016-11-26 05:10] LABS: Hematocrit 35 % (35-47); Hemoglobin 12.2 g/dl (12.0-16.0); Mean Corpuscular HGB Conc 35 g/dl (31-36); Mean Corpuscular Hemoglobin 31 pg (27-31); Mean Corpuscular Volume 90 fL (80-97); Mean Platelet Volume 9 um3 (7.4-10.4); Red Blood Count 3.88 10^6/ul (4.0-5.4); Red Cell Distribution Width 14 % (10.5-15); White Blood Count 9.2 10^3/ul (3.5-10.8)
[2016-11-26 05:18] LABS: BUN/Creatinine Ratio 26.4 (8-20); C Reactive Protein 27.26 mg/L (< 5.00); Calcium 8.4 mg/dL (8.6-10.3); EGFR African American 100.5 (>60); EGFR Non-African American 78.1 (>60); Potassium 3.7 mmol/L (3.5-5.0)
[2016-11-26] MEDS: Heparin VIAL(*) 5000 UNITS/ML VIAL (FIVE THOUSAND) SUBCUT SCH ×2 (05:47→14:00)
[2016-11-26] MEDS: Levothyroxine TAB* 75 MCG TAB PO SCH (05:50)
[2016-11-26 06:10] LABS: Erythrocyte Sed Rate 29 mm/Hr (0-40)
[2016-11-26 07:33] VITALS: BP 137/78
[2016-11-26] MEDS: Sertraline* 100 MG TAB PO SCH (07:57)
[2016-11-26] MEDS: Donepezil TAB* 5 MG PO SCH (07:57)
[2016-11-26] MEDS: predniSONE TAB* 10 MG PO SCH (07:58)
[2016-11-26 12:41] LABS: Albumin 2.7 g/dL (3.2-5.2); Globulin 3.1 g/dL (2-4); Total Bilirubin 0.5 mg/dL (0.2-1.0); Total Protein 5.8 g/dL (6.4-8.9)
--- NOTE | 2016-11-26 21:05 | DS ---
DISCHARGE SUMMARY: DATE OF ADMISSION: 11/22/16 DATE OF DISCHARGE: 11/26/16 DISCHARGE DIAGNOSES: 1. Diffuse pain, probably polymyalgia rheumatica with elevated C-reactive protein. 2. Alzheimer's disease. 3. Hypothyroidism. 4. Elevated liver function tests, resolved, etiology uncertain. 5. History of osteopenia/osteoporosis. 6. History of anxiety, depression, obsessive compulsive disorder. 7. History of allergies. 8. History of hemorrhoids. 9. History of low back pain. 10. Possible peripheral neuropathy. 11. Paroxysmal atrial fibrillation, resolved. 12. Volume depletion. 13. Hypokalemia. 14. Decubitus ulcers. HISTORY: Vern Bobo is a 81-year-old woman with altered mental status admitted with new onset of atrial fibrillation, which converted and recent change in mental status, diffuse pain and unwillingness to get out of bed, worsening mental status. Patient was found to have an elevated CRP. She was sent to the emergency room. Please see the dictated admission note for details of the present illness, past medical history, family history, social and personal history, review of systems, and physical examination. DIAGNOSTIC STUDIES/LAB DATA: CBC on 11/22/16; WBC 14, H and H 15.3/46, MCV 92, PLT 230K.. Sed rate on 11/21/16 had been 38, was 37 on 11/23/16 and came down to 29 on 11/26/16. ABGs on 11/22/16; pH 7.50, pCO2 30, pO2 67. Chemistries on 11/22/16; sodium 142, potassium 3.4, CO2 20, BUN and creatinine 37/0.83, glucose 133, calcium 9.5. Rest of the compressive metabolic panel was abnormal for ALT 54, alk phos 165, albumin 3.1 globulin 4.7. CMP from the day of discharge is pending as is the Lyme serology and the tick panel. Potassium came up to 3.7 by the time of discharge. CRP came down to 27.26 from 119.81 on 11/21/16nd 103.49 on 11/22/16. TSH was normal at 2.47. Serum protein electrophoresis on 11/23/16 showed no apparent monoclonal protein. Urinalysis on 11/22/16 manuel cloudy, specific gravity 1.029, protein 1+, wbc is 1+, rbc is 3+, bacteria absent, hyaline casts present. Rheumatoid factor and ELOINA were negative. Flu testing was negative. Troponins were 0.52, 0.42, 0.22. IMAGING: Brain CT showed no acute intracranial pathology, diffuse involutional change with chronic small vessel ischemic changes. Chest x-ray on 11/22/16 showed no acute cardiopulmonary disease. Abdominal and pelvic CT on 11/22/16 showed no evidence for acute intra-abdominal abnormality and collapsed inferior vena cava suggesting of low volume status, subacute compression fracture of the inferior end plate of the L4 vertebral body. Lumbar spine MRI showed severe narrowing of the central canal at L3-4 with moderate narrowing at L2, 3, 4. Degenerative disease and osteoarthritis, multilevel neuroforaminal narrowing as described above. The compression fracture was not mentioned. EKG on 11/22/16 showed initially atrial fibrillation with rapid ventricular rate, LAFB, LVH nonspecific ST-T wave changes. EKG later in the day 11/22/16 showed sinus rhythm , LAFB, nonspecific ST-T wave changes. Echocardiogram report 11/23/16 showed mild LVH, normal EF, left ventricular diastolic filling abnormality with impaired relaxation, mild aortic valve thickening, trace aortic regurgitation, mild mitral regurgitation, mild tricuspid regurgitation. HOSPITAL COURSE: Patient was initially admitted with recent decline in physical status and mental status in the setting of fairly significant Alzheimer 's disease. She had transient atrial fibrillation in the emergency room, which converted to sinus rhythm after getting multiple doses of diltiazem and then metoprolol. It was felt that her diffuse pain might be related to polymyalgia rheumatica, which would explain her elevated CRP. It was also felt that she was volume depleted. Volume was repleted with IV fluids. Her potassium was repleted as well. The low potassium may have contributed to the atrial fibrillation. She was monitored on telemetry. Heparin was used for DVT prophylaxis. MOLST from was completed, she was do not resuscitate/do not intubate. Throughout her hospitalization, she improved. She began to eat a bit, although not a lot. She became more talkative. She was willing to move and had less pain. Neurology consult was requested. She was seen in consultation by Dr. Herring. By the time, he saw her, she was improving. An MRI had been ordered, which he canceled. He did not feel that a lumbar puncture was necessary. He did not feel that she had a stroke. He did not feel she would be a good anticoagulation candidate even if she had had a stroke because of her and the family did not want aggressive intervention. Followup neurology consultation was informally obtained with Dr. Rossi who had seen her previously as an outpatient. She suggested adding on testing for infection with Lyme serology and a tick panel. This is being ordered. The patient was monitored on telemetry. She remained in normal sinus rhythm. She was seen by Physical Therapy. By 11/25/16, she was requiring [id number] assist x1 to complete supine to sit transfer, which was improved. She had a minimal assisted scooter at the side of the bed with verbal and tactile cues. She completed stand to pivot transfer bed to chair with maximum assist of one and verbal tactile cues for patient to hold onto arms of therapist for support during transfer with the use of gait belt to safety. She was unable to do the therapeutic exercises because she could not follow instructions. She was sitting in the Monica chair, a chair following the PT session. She had a Haro catheter while she is in the hospital. During her hospitalization, she had Mepilex put on the decubitus ulcers noted and these will remain. The home nursing service requested that the Haro catheter remain in until her ulcers heal. By 11/26/16, she had taken some steps into the chair. She denied pain. She was still not eating a lot, but is drinking fairly well. felt he could take her home. PHYSICAL EXAMINATION: Vital Signs: Show a blood pressure 137/78, pulse 67, respirations 16, temperature 97.1, O2 sat 97%. She was chatty, but confused. Her chest was clear. Heart was regular. Extremities: Showed no calf tenderness. No edema. Labs are as noted above. It is felt that she likely does have PMR. We will order a tick panel. Her CMP is being repeated as well. MEDICATIONS: Her medications at the time of discharge are: 1. Levothyroxine 75 mcg daily. 2. Donepezil 10 mg daily. 3. Prednisone 10 mg twice daily. 4. Sertraline 100 mg daily. 5. Vitamin supplements as before. 6. Vitamin D3 1000 units a day. 7. Vitamin E 400 units a day. 8. Ibuprofen as needed. 9. Vitamin C 500 mg a day. 10. Vitamin B complex with C1 daily. FOLLOWUP: I will follow up with her by making a home visit in the next week or so and blood work will be done at that time as well including a CBC, sed rate, and C- reactive protein. DIET: Regular. ACTIVITIES: As tolerated. She will have the Haro catheter in until her decubitus ulcers heal. [id number]/[facility] #: [id number] N[place]
[2016-11-29 20:23] LABS: B. miyamotoi PCR, B Negative (Negative); Babesia divergens/MO-1 Negative (Negative); Babesia ducani Negative (Negative); Ehrlichia ewingii/canis Negative (Negative)
== END 2016-11-26 14:15 | disposition home health service (06) | DRG 546 ==
LOC: ED 09:39 → MEDTELE 16:33 → ICU 19:25 → MEDTELE 20:20
PROVIDERS: ADMIT Internal Medicine Geriatric Medicine; ATTEND Internal Medicine Geriatric Medicine
PROC: 3E0234Z Introduction of Serum, Toxoid and Vaccine into Muscle, Percutaneous Approach (ICD-10-PCS; principal; 2016-11-24)
DX: M35.3 Polymyalgia rheumatica (principal); M48.56XA Collapsed vertebra, not elsewhere classified, lumbar region, initial encounter for fracture; L89.311 Pressure ulcer of right buttock, stage 1; G62.9 Polyneuropathy, unspecified; I48.0 Paroxysmal atrial fibrillation; G30.9 Alzheimer's disease, unspecified; E86.0 Dehydration; I08.3 Combined rheumatic disorders of mitral, aortic and tricuspid valves; F32.9 Major depressive disorder, single episode, unspecified; E03.9 Hypothyroidism, unspecified; F41.9 Anxiety disorder, unspecified; R94.5 Abnormal results of liver function studies; F42.9 Obsessive-compulsive disorder, unspecified; M81.0 Age-related osteoporosis without current pathological fracture; Z66 Do not resuscitate; R40.2412 Glasgow coma scale score 13-15, at arrival to emergency department; K57.90 Diverticulosis of intestine, part unspecified, without perforation or abscess without bleeding; R74.8 Abnormal levels of other serum enzymes; M54.5 Low back pain; K64.9 Unspecified hemorrhoids; M85.80 Other specified disorders of bone density and structure, unspecified site; E87.6 Hypokalemia; M47.9 Spondylosis, unspecified; Z88.2 Allergy status to sulfonamides; Z88.1 Allergy status to other antibiotic agents; Z88.8 Allergy status to other drugs, medicaments and biological substances; Z72.89 Other problems related to lifestyle; Z87.891 Personal history of nicotine dependence; Z23 Encounter for immunization
CPT/HCPCS: 36415; 36600; 70450; 71010; 72148; 74177; 80048; 80053; 81003; 81015; 82803; 83605; 83735; 83880; 84100; 84155; 84165; 84439; 84443; 84484; 85025; 85027; 85652; 86038; 86140; 86431; 86618; 87502; 87798; 90686; 93005; 93306; A9270-GY; J1644; J2543; J3370; J3480; J7512; Q9967

== ENCOUNTER 2017-01-01 09:43 | Inpatient (IN) | payer MEDICARE, OTHER ==
--- NOTE | 2017-01-01 10:57 | RAD ---
INDICATION: Intracranial injury COMPARISON: CT brain November 22, 2016 TECHNIQUE: Noncontrast axial source images were acquired from the skull base to the vertex. FINDINGS: Ventricles/sulci: There is cortical atrophy with compensatory dilatation of the CSF spaces. Brain parenchyma: There is periventricular and subcortical white matter change compatible with chronic ischemia. Intracranial hemorrhage:None. Extra-axial spaces: There are no abnormal extra axial fluid collections or evidence of extra-axial mass. Calvarium: There is no calvarial fracture or other calvarial abnormality. Scalp: There is no evidence of scalp or extracalvarial soft tissue abnormality. Paranasal sinuses/mastoid: The paranasal sinuses and mastoid air cells are clear. Other: None. IMPRESSION: CORTICAL ATROPHY WITH CHRONIC MICROVASCULAR ISCHEMIC CHANGES. NO ACUTE FINDINGS.
--- NOTE | 2017-01-01 11:50 | RAD ---
INDICATION: Right hip pain COMPARISON: Pelvis April 28, 2016 TECHNIQUE: An AP view of the pelvis and AP views of the hip in neutral and abducted position were obtained FINDINGS: Bones: There is internal rotation of the right femur. A subcapital fracture study excluded. Suggest CT imaging as indicated clinically. Joint spaces: The hips articulate normally. The joint spaces are preserved. SI joints/symphysis: The SI joints and symphysis are intact. Other: None IMPRESSION: INTERNAL ROTATION RIGHT HIP. POSSIBLE SUBCAPITAL FRACTURE
--- NOTE | 2017-01-01 11:50 | RAD ---
INDICATION: Fall. Possible fracture. COMPARISON: Chest x-ray November 22, 2016 TECHNIQUE: PA and lateral dual-energy views were obtained. FINDINGS: Bones/Soft Tissues: There are no acute bony findings. Cardiomediastinal: The cardiomediastinal silhouette is normal. Lungs: There are no infiltrates. Pleura: There are no pleural effusions. Other: None IMPRESSION: NO ACTIVE DISEASE.
--- NOTE | 2017-01-01 11:57 | RAD ---
INDICATION: Fall. Right hip pain COMPARISON: Right hip January 01, 2017; CT abdomen pelvis November 22, 2016 TECHNIQUE: Noncontrast axial source images were obtained from the iliac crests through the symphysis pubis. FINDINGS: There is a subtle subcapital fracture right hip with mild impaction. There are no other pelvic fractures. The SI joints and symphysis appear intact. No free fluid or adenopathy is seen. The noncontrast CT appearance of the bowel is unremarkable. The superficial soft tissues appear normal. The bladder appears normal. IMPRESSION: SUBCAPITAL RIGHT HIP FRACTURE WITH IMPACTION.
[2017-01-01 12:16] LABS: Hematocrit 37 % (35-47); Hemoglobin 12.9 g/dl (12.0-16.0); Mean Corpuscular HGB Conc 34 g/dl (31-36); Mean Corpuscular Hemoglobin 32 pg (27-31); Mean Corpuscular Volume 93 fL (80-97); Mean Platelet Volume 8 um3 (7.4-10.4); Red Blood Count 4.04 10^6/ul (4.0-5.4); Red Cell Distribution Width 16 % (10.5-15); White Blood Count 8.4 10^3/ul (3.5-10.8)
[2017-01-01 12:27] LABS: Albumin 3.5 g/dL (3.2-5.2); BUN/Creatinine Ratio 17.1 (8-20); EGFR African American 86.5 (>60); EGFR Non-African American 67.2 (>60); Globulin 2.8 g/dL (2-4); Potassium 3.2 mmol/L (3.5-5.0); Total Bilirubin 1.6 mg/dL (0.2-1.0); Total Protein 6.3 g/dL (6.4-8.9)
[2017-01-01] MEDS ORDERED: Potassium Chlor TAB* 20 MEQ TAB.ER PO ONE (14:19)
[2017-01-01] MEDS ORDERED: Magnesium Hydroxide LIQ* 30 ML UDC PO PRN (14:28)
[2017-01-01] MEDS ORDERED: Ondansetron INJ* 2 MG/ML VIAL IV PRN (14:28)
[2017-01-01] MEDS ORDERED: NS 0.9% 1000 ML* 1,000 ML IV SCH (14:30)
[2017-01-01] MEDS: NS 0.9% 1000 ML* 1,000 ML IV SCH ×2 (16:09→22:27)
--- NOTE | 2017-01-01 16:43 | ED ---
Franklin Chavira SooYoung, scribed for Miguel Yates MD on 01/01/17 at 1019 . Neurological HPI - HPI Summary HPI Summary: A 81 y/o F with alz presents to ED s/p fall yesterday with R hip pain onset yesterday. Per family, pt was c/o R hip and RLE pain yesterday afternoon and this AM; when pt fell, she landed on her R-side on her hip and shoulder. Per daughter, she noticed that pt appeared to have slurred speech this AM. - History of Current Complaint Chief Complaint: EDNeurologicalDeficit Stated Complaint: FALL RIGHT HIP PAIN Time Seen by Provider: 01/01/17 09:55 Hx Obtained From: Family/Forensic Social Worker Onset/Duration: Started days ago - yesterday, Still Present Pain Intensity: 0 Pain Scale Used: 0-10 Numeric Character: Impaired Speech, Other: - pain R hip, RLE - Allergy/Home Medications Allergies/Adverse Reactions: Allergies Allergy/AdvReac Type Severity Reaction Status Date / Time Erythromycin Allergy Unknown Verified 01/01/17 10:07 Reaction Details Sulfa Antibiotics Allergy Unknown Verified 01/01/17 10:07 Reaction Details Venlafaxine [From Effexor] Allergy Unknown Verified 01/01/17 10:07 Reaction Details Home Medications: Home Medications predniSONE TAB* [Deltasone TAB*] 10 mg PO BEDTIME 01/01/17 [History Confirmed ] predniSONE TAB* [Deltasone TAB*] 20 mg PO .QAM 01/01/17 [History Confirmed 01/01] PMH/Surg Hx/FS Hx/Imm Hx Previously Healthy: No Endocrine/Hematology History: Denies: Hx Diabetes, Hx Thyroid Disease Cardiovascular History: Denies: Hx Hypertension, Hx Pacemaker/ICD Respiratory History: Denies: Hx Asthma, Hx Chronic Obstructive Pulmonary Disease (COPD) GI History: Denies: Hx Ulcer Musculoskeletal History: Denies: Hx Osteoporosis Sensory History: Denies: Hx Contacts or Glasses - unknown, Hx Hearing Aid Opthamlomology History: Denies: Hx Contacts or Glasses - unknown Neurological History: Reports: Other Neuro Impairments/Disorders - alzheimers Psychiatric History: Denies: Hx Panic Disorder - Cancer History Hx Chemotherapy: No Hx Radiation Therapy: No - Surgical History Surgery Procedure, Year, and Place: Appendectomy 30 yrs ago Infectious Disease History: No Infectious Disease History: Denies: Hx Clostridium Difficile, Hx Hepatitis, Hx Human Immunodeficiency Virus (HIV), Hx of Known/Suspected MRSA, Hx Shingles, Hx Tuberculosis, Hx Known/ Suspected VRE, Hx Known/Suspected VRSA, History Other Infectious Disease, Traveled Outside the [place] in Last 30 Days - Family History Known Family History: Positive: None Negative: Hypertension, Diabetes - Social History Occupation: Retired Lives: With Family Alcohol Use: Daily Substance Use Type: Reports: None Smoking Status (MU): Former Smoker Review of Systems Positive: Decreased ROM - RLE, Other - RLE pain, R hip pain Positive: Slurred Speech All Other Systems Reviewed And Are Negative: Yes Physical Exam - Summary Physical Exam Summary: The patient is well-nourished in no acute distress and in no acute pain. The skin is warm and dry and skin color reflects adequate perfusion. HEENT: The head is normocephalic and atraumatic. The pupils are equal and reactive. The conjunctivae are clear and without drainage. Nares are patent and without drainage. Mouth reveals moist mucous membranes and the throat is without erythema and exudate. The external ears are intact. The ear canals are patent and without drainage. The tympanic membranes are intact. Neck is supple with full range of motion and non-tender. There are no carotid bruits. There is no neck vein distension. Respiratory: Chest is non-tender. Lungs are clear to auscultation and breath sounds are symmetrical and equal. Cardiovascular: Heart is regular rate and rhythm. There is no murmur or rub auscultated. There is no peripheral edema and pulses are symmetrical and equal. Abdomen: The abdomen is soft and non-tender. There are normal bowel sounds heard in all four quadrants and there is no organomegaly palpated. Musculoskeletal: There is no back pain noted. Pt has tenderness at R hip and pain with all ROM of RLE, pt is unable to specify location of RLE pain. There is good capillary refill. There is no peripheral edema or calf tenderness elicited. Neurological: Patient is alert and oriented to person, place and time. The patient has symmetrical motor strength in all four extremities. Cranial nerves are grossly intact. Deep tendon reflexes are symmetrical and equal in all four extremities. Psychiatric: The patient has an appropriate affect and does not exhibit any anxiety or depression. Triage Information Reviewed: Yes Vital Signs On Initial Exam: Initial Vitals Temp Pulse Resp BP Pulse Ox 97.0 F 82 15 95/71 99 01/01/17 10:02 01/01/17 10:02 01/01/17 10:02 01/01/17 10:02 01/01/17 10:02 Vital Signs Reviewed: Yes Diagnostics - Vital Signs Vital Signs Temp Pulse Resp BP Pulse Ox 01/01/17 10:02 97.0 F 82 15 95/71 99 - Laboratory Lab Results: Lab Results 01/01/17 01/01/17 Range/Units 12:01 12:01 WBC 8.4 (3.5-10.8) 10^3/ul RBC 4.04 (4.0-5.4) 10^6/ul Hgb 12.9 (12.0-16.0) g/dl Hct 37 (35-47) % MCV 93 (80-97) fL MCH 32 H (27-31) pg MCHC 34 (31-36) g/dl RDW 16 H (10.5-15) % Plt Count 141 L (150-450) 10^3/ul MPV 8 (7.4-10.4) um3 Neut % (Auto) 84.4 H (38-83) % Lymph % (Auto) 9.0 L (25-47) % Sherman % (Auto) 5.6 (1-9) % Eos % (Auto) 0.3 (0-6) % Baso % (Auto) 0.7 (0-2) % Absolute Neuts (auto) 7.1 (1.5-7.7) 10^3/ul Absolute Lymphs (auto) 0.8 L (1.0-4.8) 10^3/ul Absolute Monos (auto) 0.5 (0-0.8) 10^3/ul Absolute Eos (auto) 0 (0-0.6) 10^3/ul Absolute Basos (auto) 0.1 (0-0.2) 10^3/ul Absolute Nucleated RBC 0 10^3/ul Nucleated RBC % 0 Sodium 137 (133-145) mmol/L Potassium 3.2 L (3.5-5.0) mmol/L Chloride 107 (101-111) mmol/L Carbon Dioxide 23 (22-32) mmol/L Anion Gap 7 (2-11) mmol/L BUN 14 (6-24) mg/dL Creatinine 0.82 (0.51-0.95) mg/dL Est GFR ( Amer) 86.5 (>60) Est GFR (Non-Af Amer) 67.2 (>60) BUN/Creatinine Ratio 17.1 (8-20) Glucose 108 H (70-100) mg/dL Calcium 9.0 (8.6-10.3) mg/dL Total Bilirubin 1.60 H (0.2-1.0) mg/dL AST 17 (13-39) U/L ALT 20 (7-52) U/L Alkaline Phosphatase 106 H (34-104) U/L Total Protein 6.3 L (6.4-8.9) g/dL Albumin 3.5 (3.2-5.2) g/dL Globulin 2.8 (2-4) g/dL Albumin/Globulin Ratio 1.3 (1-3) Result Diagrams: 01/01/17 12:01 01/01/17 12:01 Lab Statement: Any lab studies that have been ordered have been reviewed, and results considered in the medical decision making process. - Radiology CXR Xray Interpretation: No Acute Changes - IMPRESSION: No active dz. ED physician has reviewed this radiology report and agrees. Radiology Interpretation Completed By: Radiologist HIP XR Xray Interpretation: Positive (See Comments) - IMPRESSION: Possible internal rotation of R hip, possible subcapital hip fx. ED physician has reviewed this radiology report and agrees. Radiology Interpretation Completed By: Radiologist - CT BRAIN CT CT Interpretation: No Acute Changes - IMPRESSION: CORTICAL ATROPHY WITH CHRONIC MICROVASCULAR ISCHEMIC CHANGES. NO ACUTE FINDINGS. ED physician has reviewed this radiology report and agrees. CT Interpretation Completed By: Radiologist PELVIS CT CT Interpretation: Positive (See Comments) - IMPRESSION: Subcapital R hip fracture with impaction. ED physician has reviewed this radiology report and agrees. CT Interpretation Completed By: Radiologist Course/Dx - Course Course Of Treatment: It is hard to get a history from Ms. Bobo because of her dementia but she was tender to ROM of her right hip. She was found to have an impacted right femoral neck fracture. She is being admitted by the hospitalists and Dr. Perez has been consulted. - Diagnoses Provider Diagnoses: Closed right hip fracture - Physician Notifications Discussed Care Of Patient With: Cynthia Chu - Hospitalist Time Discussed With Above Provider: 11:30 Instructed by Provider To: Other - Recommends talking to PCP Discharge - Discharge Plan Condition: Stable Disposition: ADMITTED TO [facility] Consult Consult: 1134: Consult with Dr. Vera Recommends talking to hospitalist. 1215: Consult with Dr. Chu, hospitalist Will admit pt 1220: Consult with Dr. Perez, Ortho Will operate tomorrow, 01/02/2017 The documentation as recorded by the Franklin kasper SooYoung accurately reflects the service I personally performed and the decisions made by me, Miguel Yates MD.
[2017-01-01 17:26] LABS: Budding Yeast Present (Absent); Urine Bacteria Absent (Absent); Urine Bilirubin Negative (Negative); Urine Glucose Negative (Negative); Urine Nitrite Negative (Negative)
[2017-01-01 18:59] LABS: Troponin I 0.01 ng/mL (<0.04)
--- NOTE | 2017-01-01 19:42 | PN ---
Hospitalist Progress Note UA reviewed; 3+ leukocyte esterase seen but no nitrates/urine bacteria. Question if colonization, will await urine culture and start ceftriaxone while culture pending.
[2017-01-01] MEDS: cefTRIAXone VIAL(*) 1,000 MG in NS 0.9% 50 ML* 50 ML IVPB SCH (19:57)
[2017-01-01] MEDS: Acetaminophen TAB* 325 MG PO PRN (19:58)
[2017-01-01] MEDS: Docusate CAP* 100 MG PO SCH (19:58)
[2017-01-01] MEDS ORDERED: Zolpidem TAB* 5 MG PO SCH (21:00)
--- NOTE | 2017-01-01 21:52 | HP ---
ATTENDING ADDENDUM NOW INCLUDED ON THIS REPORT CC: Tata Bolton MD * MEDICINE HISTORY AND PHYSICAL: DATE OF ADMISSION: 01/01/17 ATTENDING PHYSICIAN: Cynthia Chu MD * (dictated by Flip Zepeda NP) CONSULTING PHYSICIAN: Vince Perez MD PRIMARY CARE PROVIDER: Tata Bolton MD CHIEF COMPLAINT: Fall. HISTORY OF PRESENT ILLNESS: This is a 81-year-old female patient who was brought in to the hospital today for evaluation after sustaining a fall on 12/31. The patient has a history significant for Alzheimer's dementia and is unable to provide much of a history. She is a poor historian and has no recollection of falling yesterday. Per her , the patient was ambulating in the house and apparently, there was a vase on the floor. He states that the patient most likely tripped over the vase as he heard her trip and fall from the other room. He states that he was there within a few seconds and saw her on the ground. He had her sit up and helped to lift her on to the couch. From that point, the patient was able to get up and ambulate to the bed. Per the , she stayed in the bed for the most of day yesterday and then this morning, was still refusing to get out of it. The patient's grinding supervisor came in and had concern that the patient may have had a fracture from the fall and recommended that she come in to the ED. Per the nursing staff, the grinding supervisor reportedly got the patient out of bed and the patient was able to ambulate to a wheelchair to help her get into the vehicle to come here to the ER. There is also concern for slurred speech. When I asked the patient's , he denies noticing any slurred speech yesterday or today and states that he has not heard her speak much today to know if her speech is different. The grinding supervisor apparently had noticed some slurred speech and expressed concern for this. Per the ER physician, he spoke with the grinding supervisor and he states that she thought it might have been due to dry mouth and he did not appreciate any slurred speech. Nursing staff also reports that they did not notice any focal deficits or slurred speech. We did have a CT of brain here in the ER, which showed cortical atrophy with chronic microvascular ischemic changes. No acute findings. Again, the patient' s did not witness the fall, but he is very adamant and confident that she did not hit her head and said there was no evidence of her hitting her head or loss of consciousness. The patient did have a hip and pelvis x-ray, which was inconclusive but a CT of the pelvis confirmed that she does have a subcapital right hip fracture with impaction. Dr. Perez was called for consult and Hospital Medicine was consulted to see the patient for admission. PAST MEDICAL HISTORY: Includes: 1. Alzheimer disease. 2. Hypothyroidism. 3. Polymyalgia rheumatica, on prednisone. 4. Osteopenia/osteoporosis with history of L2 compression fracture seen on . 5. Anxiety disorder. 6. History of depression. 7. Diverticulosis. 8. History of allergies. 9. Internal hemorrhoids. 10. History of low back pain. 11. Atrial fibrillation, diagnosed in November 2016. The patient's records indicate paroxysmal atrial fibrillation that resolved. 12. History of decubitus ulcers. 13. History of hypokalemia. 14. History of possible peripheral neuropathy. PAST SURGICAL HISTORY: Appendectomy. MEDICATIONS: Home medication list was obtained by nursing staff from the : 1. Cholecalciferol 1000 units daily. 2. Vitamin B complex 1 capsule daily. 3. Ascorbic acid 1 tab daily. 4. Sertraline 75 mg daily. 5. Levothyroxine 75 mcg daily. 6. Donepezil 10 mg daily. 7. Prednisone 20 mg q.a.m. and 10 mg at bedtime. 8. Vitamin E capsule 400 units daily. ALLERGIES: Include ERYTHROMYCIN, SULFA ANTIBIOTICS, and VENLAFAXINE. FAMILY HISTORY: Noncontributory. SOCIAL HISTORY: Ms. Bobo resides at home with her and does have a home health grinding supervisor. The patient's denies any recent tobacco or alcohol use. The patient has a history of tobacco use remotely, Dr. Bolton's records indicate in 1959. Her surrogate decision maker is her , Mr. Dennis Bobo. REVIEW OF SYSTEMS: Difficult to obtain secondary to dementia. All pertinent positives and negatives are included in the HPI. Her denies any recent complaints from the patient and denies that she has had any recent fever or chills. Her appetite apparently has not been very good. She denies any chest pain, shortness of breath, abdominal pain, nausea, vomiting, diarrhea, dysuria. The patient does have incontinence of urine. PHYSICAL EXAMINATION GENERAL: This is an elderly female who is lying in the stretcher, in no acute distress. VITAL SIGNS: Temperature 97.0, heart rate 66, respiratory rate 18, blood pressure 114/69, and O2 saturation is 97% on room air. HEENT: Head is atraumatic, normocephalic. Pupils are equal, round, and reactive to light. Extraocular movements are intact. Oral mucosa is tacky and dry. NECK: Supple. No lymphadenopathy appreciated. No JVD noted. RESPIRATORY: Lungs are clear to auscultation anteriorly. CARDIAC: S1, S2 heart sounds. Regular rate and rhythm. No murmurs, rubs, or gallops. No peripheral edema noted. Distal pulses are symmetric and equal and 2+ throughout. ABDOMEN: Soft, nontender, nondistended. Bowel sounds are normoactive. MUSCULOSKELETAL: The patient has full range of motion of the bilateral upper extremities and left lower extremity. The patient is guarding in the right lower extremity and cries out when moving the extremity. The right lower extremity is externally rotated. SKIN: Limited assessment. I was unable to independently roll the patient myself, but the patient reportedly has a history of decubitus ulcers to the buttocks, though by report, apparently these have healed. NEURO: The patient is alert and oriented x0. No focal deficits noted. Babinski sign is negative. The patient is unable to walk currently secondary to right hip fracture. LABORATORY DATA AND DIAGNOSTIC STUDIES: CBC: WBC 8.4, hemoglobin 12.9, hematocrit 37, platelet count 141,000. CMP: Sodium 137, potassium 3.2, chloride 107, carbon dioxide 23, BUN 14, creatinine 0.82, glucose 108. Calcium 9.2. Total bilirubin 1.6, AST 17, ALT 20, alk phos 106. Total protein 6.3. EKG shows sinus rhythm with left anterior fascicular block, which is similar to previous EKGs from November 2016. No acute ST or T wave changes to indicate acute ischemia. Pelvis CT, as previously indicated. The patient's chest x-ray shows no acute pathology. CT of the brain, as previously indicated. Old medical records were reviewed. ASSESSMENT AND PLAN: This is a 81-year-old female who presents today after a fall on 12/31/16 and has concern for a subcapital right hip fracture. She will be admitted to the surgical floor and is pending an ortho consult with plan to take her to OR tomorrow on 01/02/17 for surgical correction of the right hip. 1. Subcapital right hip fracture. We will continue to provide supportive care for the patient with analgesia. She is currently on bedrest and we anticipate that she will be to the OR tomorrow. In regards to her medications, she can continue all of her current medications as she is not on any blood thinners or aspirin. We will make her n.p.o. after midnight. In terms of preoperative clearance, RCRI index score is 0, which placed the patient at 0.4% risk of major cardiac event. Her functional MET score per the is approximately 2 to 4. Due to the patient's recent history of paroxysmal atrial fibrillation, I would recommend that the patient be monitored on telemetry postoperatively. She is not currently on any rate control agents as she has not had any further atrial fibrillation episodes. Her echocardiogram from November was reviewed and there are no major concerns noted from the echocardiogram. In regards to her polymyalgia rheumatica, recommended that the patient may benefit from perioperative hydrocortisone and may require stress dose steroids at 50 mg t.i.d. in the perioperative and postoperative periods. This could be further discussed with the patient's primary physician, Dr. Bolton. At this point in time, the patient appears to be medically optimized for surgery and I do not see any acute concerns that would prohibit the patient from moving forward. 2. History of Alzheimer disease. Continue supportive care. Comfort is a high priority in the patient with Alzheimer's dementia as she is also at high risk for postop delirium, especially with the use of analgesia. She is currently ordered Tylenol and tramadol p.r.n. We will continue the patient's home donepezil. 3. Hypothyroidism. Continue with current dose of levothyroxine. 4. Polymyalgia rheumatica. Continue with prednisone. Again, the patient may benefit from perioperative stress dose steroids. 5. For history of depression and anxiety disorder, continue home sertraline. 6. For history of osteoporosis, the patient should continue on alendronate per her primary care physician's direction. 7. FEN. The patient has poor appetite at home, so we will continue her on a regular diet. She will be n.p.o. on Monday for anticipated surgery. 8. DVT prophylaxis. She is ordered subcu heparin. We will hold the morning dose on Monday in anticipation of surgery. 9. Code status. The patient is a DNR. Her is to bring in the copy of the MOLST that was completed in November to place on the chart. TIME SPENT: Approximately 60 minutes were spent, of which more than half the time was spent [id number] with the patient and her spouse obtaining history and physical, performing the physical examination, and reviewing the plan of care. Plan of care was also reviewed with my attending, Dr. Chu, who is in agreement. FLIP ZEPEDA NP ADDENDUM: Ms. Bobo is a 81-year-old female with history of recent diagnosis of paroxysmal atrial fibrillation in November 2016, as well as dementia, who sustained a mechanical fall and presented with right hip fracture. The patient is going to be admitted to the surgical unit and Dr. Perez will consult on this patient from Orthopedic Surgery. She is planned for the surgery in the next 24 hours. For further details of the patient's presentation and plan, please see history and physical dictated by Flip Zepeda that was obtained on 01/01/17, with which I agree. CYNTHIA CHU MD [id number]/CPS #: [id number]/CPS #: [id number] NICHOLE
[2017-01-01] MEDS ORDERED: NS 0.9% 500 ML* 500 ML IV ONE (21:59)
[2017-01-01] MEDS ORDERED: Heparin VIAL(*) 5000 UNITS/ML VIAL (FIVE THOUSAND) SUBCUT SCH (22:00)
--- NOTE | 2017-01-02 02:11 | HP ---
HISTORY AND PHYSICAL: ADDENDUM: Ms. Bobo is a 81-year-old female with history of recent diagnosis of paroxysmal atrial fibrillation in November 2016, as well as dementia , who sustained a mechanical fall and presented with right hip fracture. The patient is going to be admitted to the surgical unit and Dr. Perez will consult on this patient from Orthopedic Surgery. She is planned for the surgery in the next 24 hours. For further details of the patient's presentation and plan, please see history and physical dictated by Irene Peng that was obtained on 01/01/17, with which I agree. [id number]/CPS #: [id number] MTDD
[2017-01-02 05:44] LABS: Hematocrit 33 % (35-47); Hemoglobin 11.4 g/dl (12.0-16.0); Mean Corpuscular HGB Conc 34 g/dl (31-36); Mean Corpuscular Hemoglobin 32 pg (27-31); Mean Corpuscular Volume 93 fL (80-97); Mean Platelet Volume 8 um3 (7.4-10.4); Red Blood Count 3.55 10^6/ul (4.0-5.4); Red Cell Distribution Width 17 % (10.5-15); White Blood Count 7.3 10^3/ul (3.5-10.8)
[2017-01-02 05:57] LABS: Albumin 2.8 g/dL (3.2-5.2); BUN/Creatinine Ratio 18.2 (8-20); Calcium 7.9 mg/dL (8.6-10.3); Direct Bilirubin 0.2 mg/dL (0.03-0.18); EGFR African American 111.1 (>60); EGFR Non-African American 86.4 (>60); Globulin 2.5 g/dL (2-4); Indirect Bilirubin 0.5 mg/dL (0.3-1.0); Potassium 3.6 mmol/L (3.5-5.0); Total Bilirubin 0.7 mg/dL (0.2-1.0); Total Protein 5.3 g/dL (6.4-8.9)
[2017-01-02] MEDS ORDERED: NS 0.9% 1000 ML* 500 ML IV ONE (06:15)
[2017-01-02] MEDS: Docusate CAP* 100 MG PO SCH ×2 (09:35→20:01)
[2017-01-02] MEDS ORDERED: Morphine INJ* 2 MG/ML 1 ML SYRINGE (TWO MG - NEW SYRINGE VERSION) IV PRN (10:12)
[2017-01-02] MEDS: Levothyroxine TAB* 75 MCG TAB PO SCH (10:30)
[2017-01-02] MEDS: Sertraline* 100 MG TAB PO SCH (10:30)
[2017-01-02] MEDS: Donepezil TAB* 5 MG PO SCH ×2 (10:30→16:28)
[2017-01-02] MEDS ORDERED: Hydrocortisone INJ* 100 MG VIAL IV ONE (11:00)
[2017-01-02] MEDS ORDERED: Buffered Lidocaine 0.9% SYRIN* 5 ML/SYR SYRINGE ONE (11:32)
[2017-01-02] MEDS ORDERED: Bupivacaine 0.25% SDV* 30 ML ONE (11:32)
[2017-01-02] MEDS ORDERED: ceFAZolin 2 GM PREMIX (*) 2 GM/50 ML BAG IVPB ONE (11:36)
[2017-01-02] MEDS ORDERED: KETAMINE HCL* 50 MG/ML 10 ML VIAL ONE (12:05)
[2017-01-02] MEDS ORDERED: fentaNYL* 50 MCG/ML 2 ML VIAL (100 MCG VIAL) ONE (12:05)
[2017-01-02] MEDS ORDERED: Midazolam* 1 MG/ML 5 ML VIAL (5 MG) ONE (12:05)
[2017-01-02] MEDS ORDERED: Lidocaine 2% W/EPI 1:100,000* 20 ML MDV ONE (12:53)
[2017-01-02] MEDS ORDERED: Lidocaine 2% PF * 5 ML VIAL ONE (13:41)
[2017-01-02] MEDS ORDERED: Propofol* 10 MG/ML 20 ML BTL IV PUSH ONE (13:41)
[2017-01-02] MEDS ORDERED: Phenylephrine INJ* 10 MG/ML 1 ML VIAL (10 MG) ONE (13:41)
--- NOTE | 2017-01-02 13:51 | RAD ---
INDICATION: Hip fracture, trauma, right hip pain COMPARISONS: CT dated January 01, 2017 TECHNIQUE: Fluoroscopy was provided for a surgical procedure. Total fluoroscopy time is: 53.1 seconds FINDINGS: Spot images demonstrate internal fixation of the right hip IMPRESSION: FLUOROSCOPY WAS PROVIDED FOR A SURGICAL PROCEDURE CPT II Codes: 6045F
[2017-01-02] MEDS ORDERED: fentaNYL* 50 MCG/ML 2 ML VIAL (100 MCG VIAL) IV PRN (13:57)
[2017-01-02] MEDS ORDERED: Ondansetron INJ* 2 MG/ML VIAL IV PRN (13:57)
[2017-01-02] MEDS ORDERED: Morphine INJ* 2 MG/ML 1 ML CARPUJECT IV PRN (13:57)
[2017-01-02] MEDS ORDERED: HYDROcodone/ACETAMIN 5-325 MG* 1 TAB PO PRN (14:55)
[2017-01-02] MEDS: NS 0.9% 1000 ML* 1,000 ML IV SCH (15:24)
[2017-01-02] MEDS: Acetaminophen TAB* 325 MG PO PRN (17:16)
[2017-01-02] MEDS: Hydrocortisone INJ* 100 MG VIAL IV SCH (17:18)
[2017-01-02] MEDS: cefTRIAXone VIAL(*) 1,000 MG in NS 0.9% 50 ML* 50 ML IVPB SCH (20:00)
[2017-01-03] MEDS: NS 0.9% 1000 ML* 1,000 ML IV SCH ×2 (01:33→04:07)
[2017-01-03] MEDS: Hydrocortisone INJ* 100 MG VIAL IV SCH (01:34)
[2017-01-03] MEDS: traMADol TAB* 50 MG PO PRN ×2 (05:21→16:25)
[2017-01-03] MEDS: Levothyroxine TAB* 75 MCG TAB PO SCH (05:21)
--- NOTE | 2017-01-03 05:47 | OP ---
DATE OF OPERATION: 01/02/17 - ROOM #[id number] DATE OF : 39 SURGEON: Hilton Ramos MD. PRINTED CIRCUIT BOARD DRAFTER: MARCE Olivares. ANESTHESIOLOGIST: Jay Cornelius MD ANESTHESIA: Spinal and sedation. PRE-OP DIAGNOSIS: Right hip valgus impacted hip fracture. POST-OP DIAGNOSIS: Right hip valgus impacted hip fracture. OPERATIVE PROCEDURE: Percutaneous pinning, right hip fracture. ESTIMATED BLOOD LOSS: 3 cc. COMPLICATIONS: None. HARDWARE: Synthes 7.3 cannulated screw system. SUMMARY: Ms. Bobo is a 81-year-old female who had fallen at home, landing hard on her right hip. She had difficulty walking as well as hip pain and her had brought her in yesterday and x-rays have found of valgus impacted hip fracture. My colleague, Dr. Perez, was provider relations representative and was consulted. Ms. Bobo was added on to the OR schedule today for percutaneous pinning. Dr. Perez contacted me as one of my cases was canceled and I had OR time available so that I could get her done during the day as opposed being one of the evening add-ons. Risks of surgery such as infection, scar formation, stiffness, and nonhealing of the fracture are of the some the risks discussed and Ms. Bobo and her wished to proceed. She also had been declared medically optimized. DESCRIPTION OF PROCEDURE: The patient was brought to the OR and spinal anesthesia was introduced. She was then slid over to the fracture table and placed into slight traction, more to hold her on the table. C-arm was brought in to make sure I could see adequately in both AP and lateral views and good views were possible. Right hip area was prepped and then draped. Skin over the incisional area was infiltrated using 10 cc of 50:50 mixture of 2% lidocaine with epinephrine and 0.5% Marcaine. Stab incision was made and straight snap was pushed through the vastus lateralis and lateral muscle and spread a little bit so I would have a track where I could pass the pins. Guidepin was then placed and adjusted on the start on the lateral femur until I liked the positioning and then this was run a little bit in until the tip had a bite. Then, this was run up through the neck and into the head. This was checked in AP and lateral planes and positioning appeared quite good. This was however a little bit anterior so the next pin was placed parallel to this one and posterior. A third pin was placed superior to that one. Pins were measured and a 130, a 120, and a 110 screw were all placed. Nice bite was obtained with all 3 screws. Guidewires were removed and the tip of the screws was below the level of the joint surface. Final C-arm pictures were saved. Wound was irrigated using a bulb syringe and then closed using a nylon stitch. Sterile dressing was applied. The patient was then awakened stable and transferred to the recovery room. [id number]/CPS #: [id number] NICHOLE
--- NOTE | 2017-01-03 07:55 | PN ---
Progress Note - Progress Note Date of Service: 01/03/17 SOAP: Subjective: []Patient seen out of bed in chair. She is comfortable and has no complaint of pain. She denies chest pain, shortness of breath, leg numbness, chills or fever. Objective: [] Vital Signs Temp 98.3 F 01/03/17 07:33 Pulse 75 01/03/17 07:33 Resp 16 01/03/17 07:53 BP 132/65 01/03/17 07:33 Pulse Ox 99 01/03/17 07:33 Intake & Output 01/02/17 01/03/17 01/03/17 18:59 06:59 18:59 Intake Total 2490 1440 Output Total 103 550 Balance 2387 890 Intake: IV Fluids 2490 980 LR 1500 NS (0.9%) 940 980 NS 50ML, Cefazolin 2G 50 Oral 460 Output: Haro 100 550 Estimated Blood Loss 3 Laboratory Last Values WBC 7.3 10^3/ul (3.5-10.8) 01/02/17 05:14 RBC 3.55 10^6/ul (4.0-5.4) L 01/02/17 05:14 Hgb 11.4 g/dl (12.0-16.0) L 01/02/17 05:14 Hct 33 % (35-47) L 01/02/17 05:14 MCV 93 fL (80-97) 01/02/17 05:14 MCH 32 pg (27-31) H 01/02/17 05:14 MCHC 34 g/dl (31-36) 01/02/17 05:14 RDW 17 % (10.5-15) H 01/02/17 05:14 Plt Count 120 10^3/ul (150-450) L 01/02/17 05:14 MPV 8 um3 (7.4-10.4) 01/02/17 05:14 Neut % (Auto) 59.0 % (38-83) 01/02/17 05:14 Lymph % (Auto) 30.1 % (25-47) 01/02/17 05:14 [place] % (Auto) 6.9 % (1-9) 01/02/17 05:14 Eos % (Auto) 2.9 % (0-6) 01/02/17 05:14 Baso % (Auto) 1.1 % (0-2) 01/02/17 05:14 Absolute Neuts (auto) 4.3 10^3/ul (1.5-7.7) 01/02/17 05:14 Absolute Lymphs (auto) 2.2 10^3/ul (1.0-4.8) 01/02/17 05:14 Absolute Monos (auto) 0.5 10^3/ul (0-0.8) 01/02/17 05:14 Absolute Eos (auto) 0.2 10^3/ul (0-0.6) 01/02/17 05:14 Absolute Basos (auto) 0.1 10^3/ul (0-0.2) 01/02/17 05:14 Absolute Nucleated RBC 0 10^3/ul 01/02/17 05:14 Nucleated RBC % 0.1 01/02/17 05:14 Sodium 139 mmol/L (133-145) 01/02/17 05:14 Potassium 3.6 mmol/L (3.5-5.0) 01/02/17 05:14 Chloride 114 mmol/L (101-111) H 01/02/17 05:14 Carbon Dioxide 21 mmol/L (22-32) L 01/02/17 05:14 Anion Gap 4 mmol/L (2-11) 01/02/17 05:14 BUN 12 mg/dL (6-24) 01/02/17 05:14 Creatinine 0.66 mg/dL (0.51-0.95) 01/02/17 05:14 Est GFR ( Amer) 111.1 (>60) 01/02/17 05:14 Est GFR (Non-Af Amer) 86.4 (>60) 01/02/17 05:14 BUN/Creatinine Ratio 18.2 (8-20) 01/02/17 05:14 Glucose 90 mg/dL (70-100) 01/02/17 05:14 Calcium 7.9 mg/dL (8.6-10.3) L 01/02/17 05:14 Total Bilirubin 0.70 mg/dL (0.2-1.0) 01/02/17 05:14 Direct Bilirubin 0.20 mg/dL (0.03-0.18) H 01/02/17 05:14 Indirect Bilirubin 0.5 mg/dL (0.3-1.0) 01/02/17 05:14 AST 14 U/L (13-39) 01/02/17 05:14 ALT 13 U/L (7-52) 01/02/17 05:14 Alkaline Phosphatase 75 U/L (34-104) 01/02/17 05:14 Troponin I 0.01 ng/mL (<0.04) 01/01/17 12:01 Total Protein 5.3 g/dL (6.4-8.9) L 01/02/17 05:14 Albumin 2.8 g/dL (3.2-5.2) L 01/02/17 05:14 Globulin 2.5 g/dL (2-4) 01/02/17 05:14 Albumin/Globulin Ratio 1.1 (1-3) 01/02/17 05:14 Urine Color Alana 01/01/17 16:55 Urine Appearance Cloudy 01/01/17 16:55 Urine pH 5.0 (5-9) 01/01/17 16:55 Ur Specific [place] 1.025 (1.010-1.030) 01/01/17 16:55 Urine Protein 1+(30 mg/dl) (Negative) H 01/01/17 16:55 Urine Ketones Trace (Negative) H 01/01/17 16:55 Urine Blood 2+ (Negative) H 01/01/17 16:55 Urine Nitrate Negative (Negative) 01/01/17 16:55 Urine Bilirubin Negative (Negative) 01/01/17 16:55 Urine Urobilinogen Negative (Negative) 01/01/17 16:55 Ur Leukocyte Esterase 3+ (Negative) H 01/01/17 16:55 Urine WBC (Auto) 3+(>20/hpf) (Absent) H 01/01/17 16:55 Urine RBC (Auto) 3+(>10/hpf) (Absent) H 01/01/17 16:55 Ur Squamous Epith Cells Present (Absent) H 01/01/17 16:55 Ur Transition Epith Cell Present (Absent) H 01/01/17 16:55 Urine Bacteria Absent (Absent) 01/01/17 16:55 Urine Yeast Present (Absent) H 01/01/17 16:55 Urine Glucose Negative (Negative) 01/01/17 16:55 General: Well appearing, no acute distress. Has some difficulty following instruction but is able with prompting. Is quite cooperative. RLE: Dressing is clean, dry and intact. No surrounding erythema. Bilateral lower extremities: Calves are supple and nontender without erythema, edema or palpable cords and negative andre's sign. DF/PF intact. DP/PT pulses 2 + and symmetric. Brisk capillary refill distally. Assessment: []Percutaneous right hip pinning 01/02/17 Dr Ramos Plan: []WBAT PT/OT. Pain is well controlled Patient is getting out of bed, wiggling toes. ASA adequate as long as she continues to do so.
[2017-01-03] MEDS: Sertraline* 100 MG TAB PO SCH (09:22)
[2017-01-03] MEDS: Donepezil TAB* 5 MG PO SCH (09:23)
[2017-01-03] MEDS: predniSONE TAB* 10 MG PO SCH (09:24)
[2017-01-03] MEDS: Docusate CAP* 100 MG PO SCH ×2 (09:24→19:28)
[2017-01-03 10:06] LABS: Hematocrit 33 % (35-47); Hemoglobin 11.2 g/dl (12.0-16.0); Mean Corpuscular HGB Conc 34 g/dl (31-36); Mean Corpuscular Hemoglobin 32 pg (27-31); Mean Corpuscular Volume 93 fL (80-97); Mean Platelet Volume 8 um3 (7.4-10.4); Red Cell Distribution Width 16 % (10.5-15); White Blood Count 7.5 10^3/ul (3.5-10.8)
[2017-01-03 10:29] LABS: BUN/Creatinine Ratio 9.5 (8-20); EGFR African American 117.2 (>60); EGFR Non-African American 91.2 (>60); Potassium 3.2 mmol/L (3.5-5.0)
[2017-01-03] MEDS: Aspirin TAB* 325 MG PO SCH (16:22)
[2017-01-03] MEDS: predniSONE TAB* 5 MG PO SCH (16:24)
[2017-01-03] MEDS: Heparin VIAL(*) 5000 UNITS/ML VIAL (FIVE THOUSAND) SUBCUT SCH (16:25)
[2017-01-03] MEDS: cefTRIAXone VIAL(*) 1,000 MG in NS 0.9% 50 ML* 50 ML IVPB SCH (19:43)
[2017-01-03] MEDS ORDERED: KCL IV ONE (22:55)
[2017-01-03] MEDS ORDERED: NS IV ONE (22:55)
[2017-01-04] MEDS: Heparin VIAL(*) 5000 UNITS/ML VIAL (FIVE THOUSAND) SUBCUT SCH ×2 (04:02→16:29)
[2017-01-04 05:33] LABS: Hematocrit 29 % (35-47); Hemoglobin 10.2 g/dl (12.0-16.0); Mean Corpuscular HGB Conc 35 g/dl (31-36); Mean Corpuscular Hemoglobin 32 pg (27-31); Mean Corpuscular Volume 92 fL (80-97); Mean Platelet Volume 8 um3 (7.4-10.4); Red Blood Count 3.17 10^6/ul (4.0-5.4); Red Cell Distribution Width 16 % (10.5-15); White Blood Count 7.2 10^3/ul (3.5-10.8)
[2017-01-04 05:43] LABS: BUN/Creatinine Ratio 15.5 (8-20); EGFR Non-African American 100.3 (>60); Potassium 3.5 mmol/L (3.5-5.0)
[2017-01-04] MEDS: Levothyroxine TAB* 75 MCG TAB PO SCH (06:09)
[2017-01-04] MEDS: Donepezil TAB* 5 MG PO SCH (08:15)
[2017-01-04] MEDS: Acetaminophen TAB* 325 MG PO PRN (08:16)
[2017-01-04] MEDS: Sertraline* 100 MG TAB PO SCH (08:16)
[2017-01-04] MEDS: predniSONE TAB* 10 MG PO SCH (08:16)
[2017-01-04] MEDS: Aspirin TAB* 325 MG PO SCH (08:16)
[2017-01-04] MEDS: Docusate CAP* 100 MG PO SCH ×2 (08:27→21:36)
--- NOTE | 2017-01-04 08:40 | PN ---
Progress Note - Progress Note Date of Service: 01/04/17 SOAP: Subjective: []Patient seen out of bed in chair with her son visiting. She denies pain, leg numbness, chest pain, shortness of breath, dizziness, nausea or abdominal pain. Objective: [] Vital Signs Temp 98.0 F 01/04/17 07:25 Pulse 74 01/04/17 07:25 Resp 18 01/04/17 11:34 BP 114/53 01/04/17 07:25 Pulse Ox 98 01/04/17 08:00 Intake & Output 01/03/17 01/04/17 01/04/17 18:59 06:59 18:59 Intake Total 824 994 320 Output Total 300 200 Balance 524 794 320 Intake: IV Fluids 479 520 NS (0.9%) 479 20 NS (0.9%) 20 meq KCL 500 IVPB 54 ABX - CEFTRIAXONE 54 Oral 345 420 320 Output: Haro 300 200 Other: # Bowel Movements 0 Laboratory Last Values WBC 7.2 10^3/ul (3.5-10.8) 01/04/17 04:57 RBC 3.17 10^6/ul (4.0-5.4) L 01/04/17 04:57 Hgb 10.2 g/dl (12.0-16.0) L 01/04/17 04:57 Hct 29 % (35-47) L 01/04/17 04:57 MCV 92 fL (80-97) 01/04/17 04:57 MCH 32 pg (27-31) H 01/04/17 04:57 MCHC 35 g/dl (31-36) 01/04/17 04:57 RDW 16 % (10.5-15) H 01/04/17 04:57 Plt Count 128 10^3/ul (150-450) L 01/04/17 04:57 MPV 8 um3 (7.4-10.4) 01/04/17 04:57 Neut % (Auto) 66.6 % (38-83) 01/04/17 04:57 Lymph % (Auto) 25.3 % (25-47) 01/04/17 04:57 [place] % (Auto) 5.6 % (1-9) 01/04/17 04:57 Eos % (Auto) 2.0 % (0-6) 01/04/17 04:57 Baso % (Auto) 0.5 % (0-2) 01/04/17 04:57 Absolute Neuts (auto) 4.8 10^3/ul (1.5-7.7) 01/04/17 04:57 Absolute Lymphs (auto) 1.8 10^3/ul (1.0-4.8) 01/04/17 04:57 Absolute Monos (auto) 0.4 10^3/ul (0-0.8) 01/04/17 04:57 Absolute Eos (auto) 0.1 10^3/ul (0-0.6) 01/04/17 04:57 Absolute Basos (auto) 0 10^3/ul (0-0.2) 01/04/17 04:57 Absolute Nucleated RBC 0 10^3/ul 01/04/17 04:57 Nucleated RBC % 0 01/04/17 04:57 Sodium 136 mmol/L (133-145) 01/04/17 04:57 Potassium 3.5 mmol/L (3.5-5.0) 01/04/17 04:57 Chloride 111 mmol/L (101-111) 01/04/17 04:57 Carbon Dioxide 19 mmol/L (22-32) L 01/04/17 04:57 Anion Gap 6 mmol/L (2-11) 01/04/17 04:57 BUN 9 mg/dL (6-24) 01/04/17 04:57 Creatinine 0.58 mg/dL (0.51-0.95) 01/04/17 04:57 Est GFR ( Amer) 129.0 (>60) 01/04/17 04:57 Est GFR (Non-Af Amer) 100.3 (>60) 01/04/17 04:57 BUN/Creatinine Ratio 15.5 (8-20) 01/04/17 04:57 Glucose 95 mg/dL (70-100) 01/04/17 04:57 Calcium 8.0 mg/dL (8.6-10.3) L 01/04/17 04:57 Total Bilirubin 0.70 mg/dL (0.2-1.0) 01/02/17 05:14 Direct Bilirubin 0.20 mg/dL (0.03-0.18) H 01/02/17 05:14 Indirect Bilirubin 0.5 mg/dL (0.3-1.0) 01/02/17 05:14 AST 14 U/L (13-39) 01/02/17 05:14 ALT 13 U/L (7-52) 01/02/17 05:14 Alkaline Phosphatase 75 U/L (34-104) 01/02/17 05:14 Troponin I 0.01 ng/mL (<0.04) 01/01/17 12:01 Total Protein 5.3 g/dL (6.4-8.9) L 01/02/17 05:14 Albumin 2.8 g/dL (3.2-5.2) L 01/02/17 05:14 Globulin 2.5 g/dL (2-4) 01/02/17 05:14 Albumin/Globulin Ratio 1.1 (1-3) 01/02/17 05:14 Urine Color Alana 01/01/17 16:55 Urine Appearance Cloudy 01/01/17 16:55 Urine pH 5.0 (5-9) 01/01/17 16:55 Ur Specific [place] 1.025 (1.010-1.030) 01/01/17 16:55 Urine Protein 1+(30 mg/dl) (Negative) H 01/01/17 16:55 Urine Ketones Trace (Negative) H 01/01/17 16:55 Urine Blood 2+ (Negative) H 01/01/17 16:55 Urine Nitrate Negative (Negative) 01/01/17 16:55 Urine Bilirubin Negative (Negative) 01/01/17 16:55 Urine Urobilinogen Negative (Negative) 01/01/17 16:55 Ur Leukocyte Esterase 3+ (Negative) H 01/01/17 16:55 Urine WBC (Auto) 3+(>20/hpf) (Absent) H 01/01/17 16:55 Urine RBC (Auto) 3+(>10/hpf) (Absent) H 01/01/17 16:55 Ur Squamous Epith Cells Present (Absent) H 01/01/17 16:55 Ur Transition Epith Cell Present (Absent) H 01/01/17 16:55 Urine Bacteria Absent (Absent) 01/01/17 16:55 Urine Yeast Present (Absent) H 01/01/17 16:55 Urine Glucose Negative (Negative) 01/01/17 16:55 General: calm and cooperative. Communicates appropriately but confused at baseline. Right Lower extremity: Incision is clean, dry, intact without surrounding erythema or discharge. Dressing was changed. No tenderness to palpation of surrounding tissue. Bilateral lower extremities: Calves are supple and nontender without erythema, edema or palpable cord. Negative andre's sign bilaterally. DF/PF intact. DP/PT pulses 2+. Capillary refill brisk distally. Sensation intact to light touch distally. Assessment: []Percutaneous pinning of right hip Low urine output, poor oral intake Plan: []WBAT ASA and heparin PT/OT Encouraged to eat and drink, activity as directed by PT/OT Daily dressing changes PMRU tomorrow
[2017-01-04] MEDS: traMADol TAB* 50 MG PO PRN (11:34)
[2017-01-04] MEDS: predniSONE TAB* 5 MG PO SCH (16:35)
[2017-01-05] MEDS: Heparin VIAL(*) 5000 UNITS/ML VIAL (FIVE THOUSAND) SUBCUT SCH (03:50)
[2017-01-05] MEDS: Acetaminophen TAB* 325 MG PO PRN (05:34)
[2017-01-05] MEDS: Levothyroxine TAB* 75 MCG TAB PO SCH (05:35)
[2017-01-05 06:30] LABS: Hematocrit 28 % (35-47); Hemoglobin 9.7 g/dl (12.0-16.0); Mean Corpuscular HGB Conc 35 g/dl (31-36); Mean Corpuscular Hemoglobin 32 pg (27-31); Mean Corpuscular Volume 92 fL (80-97); Mean Platelet Volume 8 um3 (7.4-10.4); Red Blood Count 3.05 10^6/ul (4.0-5.4); Red Cell Distribution Width 16 % (10.5-15); White Blood Count 6.6 10^3/ul (3.5-10.8)
[2017-01-05 06:41] LABS: BUN/Creatinine Ratio 16.7 (8-20); Calcium 8.1 mg/dL (8.6-10.3); EGFR African American 140.1 (>60); EGFR Non-African American 108.9 (>60); Magnesium 1.9 mg/dL (1.9-2.7); Potassium 3.5 mmol/L (3.5-5.0)
[2017-01-05 08:33] VITALS: BP 114/52
[2017-01-05] MEDS: Docusate CAP* 100 MG PO SCH (08:42)
[2017-01-05] MEDS: Sertraline* 100 MG TAB PO SCH (08:42)
[2017-01-05] MEDS: predniSONE TAB* 10 MG PO SCH (08:42)
[2017-01-05] MEDS: Donepezil TAB* 5 MG PO SCH (08:42)
[2017-01-05] MEDS: Aspirin TAB* 325 MG PO SCH (08:42)
[2017-01-05] MEDS: traMADol TAB* 50 MG PO PRN (10:35)
--- NOTE | 2017-01-05 11:30 | PN ---
Progress Note - Progress Note Date of Service: 01/05/17 SOAP: Subjective: []Patient seen out of bed in chair. She has mild pain of operative site today after occupational therapy. Objective: [] Vital Signs Temp 98.6 F 01/05/17 07:35 Pulse 62 01/05/17 07:35 Resp 20 01/05/17 10:35 BP 114/52 01/05/17 07:35 Pulse Ox 97 01/05/17 07:35 Intake & Output 01/04/17 01/05/17 01/05/17 18:59 06:59 18:59 Intake Total 500 220 Output Total 90 325 Balance 410 -105 Intake: Oral 500 220 Output: Haro 90 325 Laboratory Last Values WBC 6.6 10^3/ul (3.5-10.8) 01/05/17 06:15 RBC 3.05 10^6/ul (4.0-5.4) L 01/05/17 06:15 Hgb 9.7 g/dl (12.0-16.0) L 01/05/17 06:15 Hct 28 % (35-47) L 01/05/17 06:15 MCV 92 fL (80-97) 01/05/17 06:15 MCH 32 pg (27-31) H 01/05/17 06:15 MCHC 35 g/dl (31-36) 01/05/17 06:15 RDW 16 % (10.5-15) H 01/05/17 06:15 Plt Count 141 10^3/ul (150-450) L 01/05/17 06:15 MPV 8 um3 (7.4-10.4) 01/05/17 06:15 Neut % (Auto) 66.6 % (38-83) 01/04/17 04:57 Lymph % (Auto) 25.3 % (25-47) 01/04/17 04:57 [place] % (Auto) 5.6 % (1-9) 01/04/17 04:57 Eos % (Auto) 2.0 % (0-6) 01/04/17 04:57 Baso % (Auto) 0.5 % (0-2) 01/04/17 04:57 Absolute Neuts (auto) 4.8 10^3/ul (1.5-7.7) 01/04/17 04:57 Absolute Lymphs (auto) 1.8 10^3/ul (1.0-4.8) 01/04/17 04:57 Absolute Monos (auto) 0.4 10^3/ul (0-0.8) 01/04/17 04:57 Absolute Eos (auto) 0.1 10^3/ul (0-0.6) 01/04/17 04:57 Absolute Basos (auto) 0 10^3/ul (0-0.2) 01/04/17 04:57 Absolute Nucleated RBC 0 10^3/ul 01/04/17 04:57 Nucleated RBC % 0 01/04/17 04:57 Sodium 135 mmol/L (133-145) 01/05/17 06:15 Potassium 3.5 mmol/L (3.5-5.0) 01/05/17 06:15 Chloride 108 mmol/L (101-111) 01/05/17 06:15 Carbon Dioxide 23 mmol/L (22-32) 01/05/17 06:15 Anion Gap 4 mmol/L (2-11) 01/05/17 06:15 BUN 9 mg/dL (6-24) 01/05/17 06:15 Creatinine 0.54 mg/dL (0.51-0.95) 01/05/17 06:15 Est GFR ( Amer) 140.1 (>60) 01/05/17 06:15 Est GFR (Non-Af Amer) 108.9 (>60) 01/05/17 06:15 BUN/Creatinine Ratio 16.7 (8-20) 01/05/17 06:15 Glucose 96 mg/dL (70-100) 01/05/17 06:15 Calcium 8.1 mg/dL (8.6-10.3) L 01/05/17 06:15 Magnesium 1.9 mg/dL (1.9-2.7) 01/05/17 06:15 Total Bilirubin 0.70 mg/dL (0.2-1.0) 01/02/17 05:14 Direct Bilirubin 0.20 mg/dL (0.03-0.18) H 01/02/17 05:14 Indirect Bilirubin 0.5 mg/dL (0.3-1.0) 01/02/17 05:14 AST 14 U/L (13-39) 01/02/17 05:14 ALT 13 U/L (7-52) 01/02/17 05:14 Alkaline Phosphatase 75 U/L (34-104) 01/02/17 05:14 Troponin I 0.01 ng/mL (<0.04) 01/01/17 12:01 Total Protein 5.3 g/dL (6.4-8.9) L 01/02/17 05:14 Albumin 2.8 g/dL (3.2-5.2) L 01/02/17 05:14 Globulin 2.5 g/dL (2-4) 01/02/17 05:14 Albumin/Globulin Ratio 1.1 (1-3) 01/02/17 05:14 Urine Color [place]ana 01/01/17 16:55 Urine Appearance Cloudy 01/01/17 16:55 Urine pH 5.0 (5-9) 01/01/17 16:55 Ur Specific [place] 1.025 (1.010-1.030) 01/01/17 16:55 Urine Protein 1+(30 mg/dl) (Negative) H 01/01/17 16:55 Urine Ketones Trace (Negative) H 01/01/17 16:55 Urine Blood 2+ (Negative) H 01/01/17 16:55 Urine Nitrate Negative (Negative) 01/01/17 16:55 Urine Bilirubin Negative (Negative) 01/01/17 16:55 Urine Urobilinogen Negative (Negative) 01/01/17 16:55 Ur Leukocyte Esterase 3+ (Negative) H 01/01/17 16:55 Urine WBC (Auto) 3+(>20/hpf) (Absent) H 01/01/17 16:55 Urine RBC (Auto) 3+(>10/hpf) (Absent) H 01/01/17 16:55 Ur Squamous Epith Cells Present (Absent) H 01/01/17 16:55 Ur Transition Epith Cell Present (Absent) H 01/01/17 16:55 Urine Bacteria Absent (Absent) 01/01/17 16:55 Urine Yeast Present (Absent) H 01/01/17 16:55 Urine Glucose Negative (Negative) 01/01/17 16:55 General: Well appearing. Alert but confused. RLE: Incision CDI, dressing changed. B/L LE: calves supple and nontender without erythema, edema, palpable cords. negative andre's sign. DF/PF intact. DP/PT pulses 2+ Assessment: []s/p percutaneous pinning of right femoral neck fracture on 01/02 Plan: []WBAT PT/OT PMRU Continue ASA as long as active. If not moving well with PT/OT will need eliquis or xeralto
--- NOTE | 2017-01-06 03:30 | TRS ---
CC: Dr. Ramos; [facility]. * TRANSFER SUMMARY: DATE OF ADMISSION: 01/01/17 DATE OF DISCHARGE: 01/05/17 TRANSFER DIAGNOSES: 1. Right hip valgus impacted hip fracture, status post percutaneous pinning. 2. History of Alzheimer's disease. 3. Hypothyroidism. 4. Polymyalgia rheumatica. 5. History of anxiety, on sertraline. 6. History of osteopenia/osteoporosis. 7. History of allergies. 8. History of hemorrhoids. 9. History of low back pain. 10. Possible peripheral neuropathy. 11. Paroxysmal atrial fibrillation. 12. Low urine output. 13. Postoperative anemia. 14. Mild thrombocytopenia. 15. Hypokalemia, resolved. 16. Urine colonized with Winnie lusitaniae. HISTORY: Vern Bobo is a 81-year-old woman, who fell, tripped over a vase on the floor. She fractured her hip. Please see the dictated admission note for details of the present illness, past medical history, family history, social and personal history, review of systems, and physical examination. DIAGNOSTIC STUDIES/LAB DATA: CBC on admission: WBC 8.4, H and H 12.9/37, MCV 93, PLT 141K. Subsequent CBC were done as well, it showed a white count on of 6.6; H and H came down as low as 9.7/28; low platelet count, was 120 on 01/02/17, came up to 141 on 01/05/17. Chemistries on admission, sodium 137, potassium 3.2, chloride 107, CO2 23, BUN and creatinine 14/0.82, glucose 108, bilirubin 1.6, alk phos 106, total protein 6.3. Otherwise, her chemistry profile was within normal limits. Chemistries prior to transfer on 01/05/17, sodium 135, potassium 3.5, chloride 108, CO2 23, BUN and creatinine 9/0.54. Urinalysis on 01/01/17 manuel and cloudy, specific gravity 1.025, pH 5, dipstick is positive for protein 1+, blood 2+, leukocyte esterase 3+, urine wbc's 3+, urine rbc's 3+, squamous epithelial cells present, urine transitional epithelial cells present. Yeast present. Microbiology: Urine culture positive for Winnie lusitaniae. Imaging: Brain CT on 01/01/17 showed no acute findings. There was cortical atrophy with chronic microvascular ischemic changes seen. Hip and pelvis x-ray on 01/01/17 showed internal rotation, right hip, possible subcapital fracture. Chest x-ray on 01/01/17 showed no active disease. Pelvis CT on 01/01/17 showed subcapital right hip fracture with impaction. Hip x-ray 01/02/17 in the operating room showed fluoroscopy for surgical procedure. EKG on 01/01/17, sinus rhythm, left anterior fascicular block, lateral T waves more prominent, otherwise no significant change from EKG of 11/22/16. HOSPITAL COURSE: The patient was admitted. Home medications were prescribed. She receives stress doses of steroids for her surgery. Her hip was pinned on the day following admission. She tolerated surgery without complications. She was DNR. She received DVT prophylaxis. She received physical therapy. Initially, she was on antibiotics for a possible urinary tract infection. When the microbiology report was received, these were stopped. She remained confused due to her Alzheimer's disease. She had low urine output, felt to be due to low p.o. intake. She still has a jordan catheter iwhich can be discontinued when she gets to [facility]. At the time of discharge, her vital signs were blood pressure 114/52, pulse 62, respirations 18, temperature 98.6, O2 sat 97%. She is sitting in a chair. Chest is clear. Heart is regular. She has no calf tenderness. It was felt that she could transfer to the [facility] for further physical therapy, rehab. MEDICATIONS AT THE TIME OF DISCHARGE: At the time of discharge, her medications are as follows: 1. Tylenol 650 every 4 hours p.r.n. pain. 2. Hydrocodone/APAP 1 every 4 hours p.r.n. moderate pain. 3. Aspirin 325 mg daily. 4. Docusate 100 mg twice daily. 5. Donepezil 10 mg daily. 6. Heparin 5000 units subcu q.12h. 7. Levothyroxine 75 mcg daily. 8. Milk of magnesia 30 mL q.4h. p.r.n. 9. Morphine sulfate 2 mg every q.2h. p.r.n. pain. 10. Ondansetron 4 mg IV q.6h. p.r.n. nausea or vomiting. 11. Prednisone 10 mg q.a.m., 5 mg q.p.m. 12. Sertraline 100 mg daily. 13. Tramadol 50 mg q.6h. p.r.n. pain. 14. Milk of magnesia prn constipation. In the past day, she received milk of magnesia and has been taking acetaminophen and tramadol for pain. [id number]/[facility] #: [id number] MTDD
== END 2017-01-05 11:05 | DRG 481 ==
LOC: ED 09:43 → SSU 14:32
PROVIDERS: ADMIT Internal Medicine; ATTEND Internal Medicine Geriatric Medicine
PROC: 0QH634Z Insertion of Internal Fixation Device into Right Upper Femur, Percutaneous Approach (ICD-10-PCS; principal; 2017-01-01)
DX: S72.011A Unspecified intracapsular fracture of right femur, initial encounter for closed fracture (principal); D62 Acute posthemorrhagic anemia; D69.6 Thrombocytopenia, unspecified; G62.9 Polyneuropathy, unspecified; I48.0 Paroxysmal atrial fibrillation; D64.9 Anemia, unspecified; E03.9 Hypothyroidism, unspecified; E87.6 Hypokalemia; F32.9 Major depressive disorder, single episode, unspecified; G30.9 Alzheimer's disease, unspecified; F02.80 Dementia in other diseases classified elsewhere, unspecified severity, without behavioral disturbance, psychotic disturbance, mood disturbance, and anxiety; F41.9 Anxiety disorder, unspecified; W01.0XXA Fall on same level from slipping, tripping and stumbling without subsequent striking against object, initial encounter; R47.81 Slurred speech; M35.3 Polymyalgia rheumatica; M85.88 Other specified disorders of bone density and structure, other site; M81.0 Age-related osteoporosis without current pathological fracture; K64.8 Other hemorrhoids; Z66 Do not resuscitate; I44.4 Left anterior fascicular block; R39.12 Poor urinary stream; Y92.009 Unspecified place in unspecified non-institutional (private) residence as the place of occurrence of the external cause; Z88.1 Allergy status to other antibiotic agents; Z88.2 Allergy status to sulfonamides; Z88.8 Allergy status to other drugs, medicaments and biological substances; Z87.891 Personal history of nicotine dependence; Z79.82 Long term (current) use of aspirin
CPT/HCPCS: 36415; 70450; 71010; 72192; 76000; 80048; 80053; 80076; 81003; 81015; 83735; 84484; 85025; 85027; 87086; 87106; 93005; A9270-GY; J0690; J0696; J1644; J1720; J2250; J2270; J2704; J3010; J7512

== ENCOUNTER 2017-01-05 07:45 | Inpatient (IN) | payer MEDICARE, OTHER ==
[2017-01-05] MEDS ORDERED: Magnesium Hydroxide LIQ* 30 ML UDC PO PRN (11:35)
[2017-01-05] MEDS ORDERED: Senna TAB PO PRN (11:35)
[2017-01-05] MEDS ORDERED: traMADol TAB* 50 MG PO PRN (11:44)
[2017-01-05] MEDS: Heparin VIAL(*) 5000 UNITS/ML VIAL (FIVE THOUSAND) SUBCUT SCH ×2 (14:34→22:49)
[2017-01-05] MEDS: predniSONE TAB* 5 MG PO SCH (19:09)
[2017-01-05] MEDS: Docusate CAP* 100 MG PO SCH (19:35)
[2017-01-05] MEDS: Acetaminophen TAB* 325 MG PO PRN (19:35)
[2017-01-05] MEDS ORDERED: predniSONE TAB* 5 MG PO SCH (21:00)
--- NOTE | 2017-01-06 00:48 | HP ---
ADMISSION HISTORY AND PHYSICAL: DATE OF ADMISSION: 01/05/17 REASON FOR REFERRAL: Right hip fracture. HISTORY OF PRESENT ILLNESS: Vern Bobo is a 81-year-old white female. She has a medical history significant for hypothyroidism and osteoporosis as well as Alzheimer's disease. She also has a history of polymyalgia rheumatica and takes chronic prednisone for that. In November of this year, she was also diagnosed with paroxysmal atrial fibrillation. The patient fell at home on 01/06. She was ambulating in the house and the patient tripped over something on the floor and fell. The was able to come in and helped her sit up and got her to the couch. The patient was ambulatory on 12/31/16, but when she woke up on the morning of 01/01/17, she had significant pain and was really not willing to get out of bed. The patient was brought to [facility]'s Emergency Room on 01/01/17. She had x-rays taken of her right hip, which showed a subcapital fracture of the right hip. She then had a CAT scan of her right hip and pelvis done. CAT scan again showed a subcapital right hip fracture with impaction. The patient was admitted to the hospital. She was seen by Orthopedics. She was taken to the operating room on 01/02/17. She underwent a percutaneous pinning of the right hip fracture. She was put on ceftriaxone postop for a probable urinary tract infection, but this was later discontinued by her primary care doctor, Dr. Bolton. She was felt to have physical therapy and occupational therapy needs. She is now being admitted for inpatient rehab system and return to independent living. PAST MEDICAL HISTORY: Significant for the aforementioned polymyalgia rheumatica , chronic steroid use, osteoporosis, hypothyroidism as well as Alzheimer's disease and paroxysmal atrial fibrillation. She also has chronic hypokalemia. CURRENT MEDICATIONS: Include: 1. Aspirin. 2. Aricept. 3. Heparin for DVT prophylaxis. 4. Synthroid. 5. Prednisone. 6. Zoloft. 7. Ultram. ALLERGIES: ERYTHROMYCIN, SULFA ANTIBIOTICS, and VENLAFAXINE. SOCIAL HISTORY: She lives with her in a house in [place]. They have a multi-marcela home, but they have first floor set up, there are 2 steps to enter with railings. The patient was a nonsmoker, nondrinker. REVIEW OF SYSTEMS: The patient reports no current shortness of breath or chest pain. PHYSICAL EXAMINATION VITAL SIGNS: The patient's temperature is 98.6, blood pressure is 114/50, pulse 62, and respirations 16. HEENT: Her extraocular movements are intact. Tongue is midline. NECK: Supple. LUNGS: Sounded clear to auscultation bilaterally. HEART: Heart sounds are regular, S1 and S2 are audible. ABDOMEN: Soft and nontender. EXTREMITIES: Her right hip has a wound, which is clean and dry. Muscle, bulk and tone were normal in the lower extremities. NEUROLOGIC: The patient is awake, alert, and oriented to herself. Muscle strength is 5/5 in both upper and lower extremities except the right lower extremity, which is 3/5 secondary to pain. FUNCTIONAL EXAM: The patient is dependent on transfers. ASSESSMENT: Right hip fracture, status post percutaneous pinning. PLAN: We are going to integrate her into a comprehensive and therapeutic rehab program, 1. Physical Therapy will work with the patient. They are going to work on functional transfer training, ambulation training with a walker. 2. Occupational Therapy will see the patient, work on her activities of daily living including toileting and toilet transfers. 3. Heparin for DVT prophylaxis. 4. Adequate analgesia without causing increased confusion. 5. Continue Synthroid for hypothyroidism. 6. Continue Zoloft for depression. 7. For her Alzheimer's disease, we are going to continue Aricept. 8. For her polymyalgia rheumatica, we will continue prednisone. 9. Family training as appropriate. 10. director of rehabilitative services will be closely involved to make sure that any services and equipment the patient requires are in place prior to discharge. 11. Home with appropriate services. 12. Advanced Directives: Av has a MOLST and HCP. DNR status ESTIMATED LENGTH OF STAY: Ten days. [id number]/CPS #: [id number] NICHOLE
[2017-01-06] MEDS: Levothyroxine TAB* 75 MCG TAB PO SCH (06:29)
[2017-01-06] MEDS: Heparin VIAL(*) 5000 UNITS/ML VIAL (FIVE THOUSAND) SUBCUT SCH ×3 (06:30→21:55)
[2017-01-06] MEDS: predniSONE TAB* 10 MG PO SCH (08:41)
[2017-01-06] MEDS: Donepezil TAB* 5 MG PO SCH (08:41)
[2017-01-06] MEDS: Aspirin TAB* 325 MG PO SCH (08:41)
[2017-01-06] MEDS: Sertraline* 100 MG TAB PO SCH (08:41)
[2017-01-06] MEDS: Docusate CAP* 100 MG PO SCH ×2 (08:42→21:56)
[2017-01-06 09:05] LABS: Hematocrit 32 % (35-47); Hemoglobin 10.9 g/dl (12.0-16.0); Mean Corpuscular HGB Conc 34 g/dl (31-36); Mean Corpuscular Hemoglobin 32 pg (27-31); Mean Corpuscular Volume 94 fL (80-97); Mean Platelet Volume 8 um3 (7.4-10.4); Red Cell Distribution Width 17 % (10.5-15); White Blood Count 6.7 10^3/ul (3.5-10.8)
[2017-01-06 09:26] LABS: Albumin 2.8 g/dL (3.2-5.2); BUN/Creatinine Ratio 13.8 (8-20); Calcium 8.6 mg/dL (8.6-10.3); EGFR African American 113.1 (>60); EGFR Non-African American 87.9 (>60); Globulin 2.5 g/dL (2-4); Potassium 3.4 mmol/L (3.5-5.0); Total Bilirubin 0.5 mg/dL (0.2-1.0); Total Protein 5.3 g/dL (6.4-8.9)
[2017-01-06] MEDS: Acetaminophen TAB* 325 MG PO PRN ×2 (12:52→18:16)
--- NOTE | 2017-01-06 13:06 | PMRUTEAM ---
PMRU: Goals Current Status: Nursing: Current Status Skin Deviations [Right Lateral Bruise,Incision Hip] Skin Deviations [Left Knee] Other Skin Deviations [Bilateral Rash Groin] Skin Deviations [Bilateral Other Buttocks] Skin Deviation Description [ one stitch Right Lateral Hip] Skin Deviation Description [ scab Left Knee] Skin Deviation Description [ improving Bilateral Groin] Skin Deviation Description [ blanchable redness Bilateral Buttocks] Physical Therapy: Current Status Bed Mobility Assistance 2 or More Person Assist Transfer Moblility Assistance Max Assist Transfer/Bed Mobility EZ Stand Recommended Devices Ambulation Assistance Unable Ambulation Assistive Devices Rolling Walker Stairs Assistance Mod Assist Stairs Recommended Devices Two Rails Number of Stairs 2 Occupational Therapy: Current Status Upper Body Dressing Supervision Lower Body Dressing Total Assist Bathing Mod Assist Toileting Total Assist,2 Person Assist Toilet Transfer Mod Assist,Max Asst,2 Person Assist Eating Supervision Goals: Physical Therapy: Initial Goals Bed Mobility Assistance Supervision Transfer Mobility Assistance Supervision Transfer/Bed Mobility Rolling Walker Recommended Devices Ambulation Supervision Ambulation Recommended Devices Rolling Walker Ambulation Distance 150 Stairs Assistance Supervision Stair Recommended Devices Two Rails Number of Stairs 2 Physical Therapy: Updated Goals Transfer/Bed Mobility EZ Stand Recommended Devices Occupational Therapy: Initial Goals Goals to be Completed in (Days 10-14 ) Upper Body Bathing Routine Minimal Contact Assist Lower Body Bathing Routine Moderate Assist Upper Body Dressing Routine Minimal Contact Assist Lower Body Dressing Routine Maximal Assist Toilet Hygeine and Clothing Supervision/Set Up Management Routine Toilet Transfer Routine Supervision/Set Up Step-In Shower Transfer Minimal Contact Assist Routine Functional Transfers for ADL Supervision/Set Up Grooming Routine Supervision/Set Up Feeding Routine Supervision/Set Up Care Plan: Care Plan ADL's - Improve/Maintain Start: 01/05/17 12:00 Freq: DAILY Status: Active Target: Protocol: Activity Type Activity Date Activity User E-Sign Co-Sign Detail Recorded Client Recorded Date Recorded By Document 01/05/17 12:00 [id number] 01/05/17 12:00 [id number] 01/05/17 12:00 PMRU Outcome: ADL's/ADL Transfers Orders/Interventions Occupational Therapy Evaluation & Treatment Patient to receive OT 5x/wk for 60-120 Therex min/day Self Care Management Group Therapy UE/LE ADL's with Assist Yes: mod A ADL Transfers with Assist Yes: S Toileting: Transfers,Clothing Management Yes: S ,Hygeine w/Assist Light Kitchen/Laundry w/Assist No Progression Toward Outcome/Goals Progressing DVT Prophylaxis- Improve/Maintain Start: 01/05/17 21:40 Freq: DAILY Status: Active Target: Protocol: Activity Type Activity Date Activity User E-Sign Co-Sign Detail Recorded Client Recorded Date Recorded By Document 01/06/17 01:04 [id number] 01/06/17 01:05 [id number] 01/06/17 01:04 PMRU Outcome: DVT Prophylaxis Outcome/Goals Remains Free of DVT TEDS Stockings on Every AM, Off at HS Discharge Planning - Improve/Maintain Start: 01/05/17 21:40 Freq: DAILY Status: Active Target: Protocol: Activity Type Activity Date Activity User E-Sign Co-Sign Detail Recorded Client Recorded Date Recorded By Document 01/06/17 01:04 [id number] 01/06/17 01:05 [id number] 01/06/17 01:04 PMRU Outcome: Discharge Planning Update Patient Family No /GI-Improve/Maintain Start: 01/05/17 21:40 Freq: DAILY Status: Active Target: Protocol: Activity Type Activity Date Activity User E-Sign Co-Sign Detail Recorded Client Recorded Date Recorded By Document 01/06/17 01:04 [id number] 01/06/17 01:05 [id number] 01/06/17 01:04 PMRU Outcome: Genitourinary/ Gastrointestinal Genitourinary- Outcome/Goals Maintain/ Achieve Urinary Continence Remain Free of Hospital- Acquired UTI Gastrointestinal-Outcome/Goals Prevent Constipation Neurological- Improve/Maintain Start: 01/05/17 21:40 Freq: DAILY Status: Active Target: Protocol: Activity Type Activity Date Activity User E-Sign Co-Sign Detail Recorded Client Recorded Date Recorded By Document 01/06/17 01:04 [id number] 01/06/17 01:05 [id number] 01/06/17 01:04 PMRU Outcome: Neurological Weakness/Aphasia Weakness Outcome/Goals Maintain/ Achieve Baseline Neurological Status Maintain/ Improve Strength/ROM Nutrition/Swallowing- Improve/Maintain Start: 01/05/17 21:40 Freq: DAILY Status: Active Target: Protocol: Activity Type Activity Date Activity User E-Sign Co-Sign Detail Recorded Client Recorded Date Recorded By Document 01/06/17 01:04 [id number] 01/06/17 01:05 [id number] 01/06/17 01:04 PMRU Outcome: Nutrition/Swallowing Outcome/Goals Demonstrates Adequate Hydration/ Prevents Dehydration Maintain/ Improve Nutritional Status Safety- Improve/Maintain Start: 01/05/17 21:40 Freq: DAILY Status: Active Target: Protocol: Activity Type Activity Date Activity User E-Sign Co-Sign Detail Recorded Client Recorded Date Recorded By Document 01/06/17 01:04 [id number] 01/06/17 01:05 [id number] 01/06/17 01:04 PMRU Outcome: Safety Outcome/Goals Remain Free of Injury or Harm Prevent Falls/ Injury Medicine Note: Length of Stay: 6 days Anticipated Discharge Destination: Tentative Discharge Date: 01/11/17 Discharged to: home
[2017-01-06] MEDS: predniSONE TAB* 5 MG PO SCH (18:55)
--- NOTE | 2017-01-06 19:04 | PN ---
Progress Note - Progress Note Date of Service: 01/06/17 Note: Vern visited. She was discussed in interdisciplinary plan of care rounds. She is doing better today than yesterday. Short term memory is not good. She has no complaints otherwise. Current Medications Acetaminophen (Tylenol Tab*) 650 mg PO Q6H PRN PRN Reason: FEVER/PAIN Last Admin: 01/06/17 18:16 Dose: 650 mg Hydrocodone Bitart/Acetaminophen ([place] 5-325 Tab*) 1 tab PO Q4H PRN PRN Reason: PAIN - MODERATE TO SEVERE Aspirin (Aspirin Tab*) 325 mg PO DAILY [facility] Last Admin: 01/06/17 08:41 Dose: 325 mg Docusate Sodium (Colace Cap*) 100 mg PO BID [facility] Last Admin: 01/06/17 08:42 Dose: Not Given Donepezil HCl (Aricept Tab*) 10 mg PO DAILY [facility] Last Admin: 01/06/17 08:41 Dose: 10 mg Heparin Sodium (Porcine) (Heparin Vial(*)) 5,000 units SUBCUT Q8HR [facility] Last Admin: 01/06/17 13:34 Dose: 5,000 units Lactulose (Lactulose*) 30 ml PO Q6H PRN PRN Reason: CONSTIPATION Levothyroxine Sodium (Synthroid Tab*) 75 mcg PO DAILY@0600 [facility] Last Admin: 01/06/17 06:29 Dose: 75 mcg Magnesium Hydroxide (Milk Of Magnesia Liq*) 30 ml PO Q6H PRN PRN Reason: CONSTIPATION Prednisone (Deltasone Tab*) 10 mg PO DAILY [facility] Last Admin: 01/06/17 08:41 Dose: 10 mg Prednisone (Deltasone Tab*) 5 mg PO 1900 [facility] Last Admin: 01/06/17 18:55 Dose: 5 mg Senna (Senokot Tab*) 2 tab PO BEDTIME PRN PRN Reason: CONSTIPATION Sertraline HCl (Zoloft*) 100 mg PO DAILY [facility] Last Admin: 01/06/17 08:41 Dose: 100 mg Tramadol HCl (Ultram*) 50 mg PO Q6H PRN PRN Reason: PAIN - MODERATE Laboratory Results - last 24 hr 01/06/17 01/06/17 08:45 08:45 WBC 6.7 RBC 3.40 L Hgb 10.9 L Hct 32 L MCV 94 MCH 32 H MCHC 34 RDW 17 H Plt Count 183 MPV 8 Neut % (Auto) 53.0 Lymph % (Auto) 38.1 [place] % (Auto) 4.3 Eos % (Auto) 3.1 Baso % (Auto) 1.5 Absolute Neuts (auto) 3.5 Absolute Lymphs (auto) 2.5 Absolute Monos (auto) 0.3 Absolute Eos (auto) 0.2 Absolute Basos (auto) 0.1 Absolute Nucleated RBC 0 Nucleated RBC % 0.1 Sodium 138 Potassium 3.4 L Chloride 108 Carbon Dioxide 26 Anion Gap 4 BUN 9 Creatinine 0.65 Est GFR ( Amer) 113.1 Est GFR (Non-Af Amer) 87.9 BUN/Creatinine Ratio 13.8 Glucose 87 Calcium 8.6 Total Bilirubin 0.50 AST 29 ALT 16 Alkaline Phosphatase 72 Total Protein 5.3 L Albumin 2.8 L Globulin 2.5 Albumin/Globulin Ratio 1.1 Vital Signs Temp Pulse Resp BP Pulse Ox 97.6 F 69 18 133/76 99 01/06/17 06:07 01/06/17 06:07 01/06/17 08:00 01/06/17 06:07 01/06/17 08:00 EXAM: LUNGS: Clear bilaterally HEART: Reg rhythm ABDOMEN: Soft EXTREMITIES: Hip pinning site clean ASSESSMENT/PLAN: 1. Left hip fracture: PT/OT 2. DVT Prophylaxis: Heparin S/Q 3. PMR: Prednisone 4. Osteoporosis: will start Calcium 5. Alzheimer's Disease: MARCE Asher 6. Advanced Directives: Has STEPHANE, DNR
[2017-01-07] MEDS: Levothyroxine TAB* 75 MCG TAB PO SCH (06:35)
[2017-01-07] MEDS: Heparin VIAL(*) 5000 UNITS/ML VIAL (FIVE THOUSAND) SUBCUT SCH ×3 (06:35→21:37)
[2017-01-07] MEDS: predniSONE TAB* 10 MG PO SCH (09:17)
[2017-01-07] MEDS: Donepezil TAB* 5 MG PO SCH (09:17)
[2017-01-07] MEDS: Docusate CAP* 100 MG PO SCH ×3 (09:17→21:36)
[2017-01-07] MEDS: Aspirin TAB* 325 MG PO SCH (09:17)
[2017-01-07] MEDS: Sertraline* 100 MG TAB PO SCH (09:17)
[2017-01-07] MEDS: HYDROcodone/ACETAMIN 5-325 MG* 1 TAB PO PRN ×2 (09:25→18:01)
--- NOTE | 2017-01-07 16:27 | PN ---
Progress Note - Progress Note Date of Service: 01/07/17 Note: Vern visited. Her STM remains poor. She had complaints of increased pain earlier, better now after 1 [place]. Otherwise no complaints. Current Medications Acetaminophen (Tylenol Tab*) 650 mg PO Q6H PRN PRN Reason: FEVER/PAIN Last Admin: 01/06/17 18:16 Dose: 650 mg Hydrocodone Bitart/Acetaminophen ([place] 5-325 Tab*) 1 tab PO Q4H PRN PRN Reason: PAIN - MODERATE TO SEVERE Last Admin: 01/07/17 09:25 Dose: 1 tab Aspirin (Aspirin Tab*) 325 mg PO DAILY [facility] Last Admin: 01/07/17 09:17 Dose: 325 mg Docusate Sodium (Colace Cap*) 100 mg PO BID [facility] Last Admin: 01/07/17 14:32 Dose: Not Given Donepezil HCl (Aricept Tab*) 10 mg PO DAILY [facility] Last Admin: 01/07/17 09:17 Dose: 10 mg Heparin Sodium (Porcine) (Heparin Vial(*)) 5,000 units SUBCUT Q8HR [facility] Last Admin: 01/07/17 14:09 Dose: 5,000 units Lactulose (Lactulose*) 30 ml PO Q6H PRN PRN Reason: CONSTIPATION Levothyroxine Sodium (Synthroid Tab*) 75 mcg PO DAILY@0600 [facility] Last Admin: 01/07/17 06:35 Dose: 75 mcg Magnesium Hydroxide (Milk Of Magnesia Liq*) 30 ml PO Q6H PRN PRN Reason: CONSTIPATION Prednisone (Deltasone Tab*) 10 mg PO DAILY [facility] Last Admin: 01/07/17 09:17 Dose: 10 mg Prednisone (Deltasone Tab*) 5 mg PO 1900 [facility] Last Admin: 01/06/17 18:55 Dose: 5 mg Senna (Senokot Tab*) 2 tab PO BEDTIME PRN PRN Reason: CONSTIPATION Sertraline HCl (Zoloft*) 100 mg PO DAILY [facility] Last Admin: 01/07/17 09:17 Dose: 100 mg Tramadol HCl (Ultram*) 50 mg PO Q6H PRN PRN Reason: PAIN - MODERATE Vital Signs Temp Pulse Resp BP Pulse Ox 99.0 F 67 18 111/40 100 01/07/17 15:41 01/07/17 15:41 01/07/17 15:41 01/07/17 15:41 01/07/17 15:41 EXAM: LUNGS: Clear bilaterally HEART: Reg rhythm ABDOMEN: Soft EXTREMITIES: Hip pinning site clean ASSESSMENT/PLAN: 1. Left hip fracture: PT/OT 2. DVT Prophylaxis: Heparin S/Q 3. PMR: Prednisone 4. Osteoporosis: will start Calcium 5. Alzheimer's Disease: MARCE Asher 6. Advanced Directives: Has MOL, DNR
[2017-01-07] MEDS: predniSONE TAB* 5 MG PO SCH (18:03)
[2017-01-08] MEDS: Heparin VIAL(*) 5000 UNITS/ML VIAL (FIVE THOUSAND) SUBCUT SCH ×3 (05:35→21:45)
[2017-01-08] MEDS: Levothyroxine TAB* 75 MCG TAB PO SCH (05:35)
[2017-01-08] MEDS: predniSONE TAB* 10 MG PO SCH (10:01)
[2017-01-08] MEDS: Sertraline* 100 MG TAB PO SCH (10:01)
[2017-01-08] MEDS: Aspirin TAB* 325 MG PO SCH (10:01)
[2017-01-08] MEDS: Donepezil TAB* 5 MG PO SCH (10:01)
[2017-01-08] MEDS: Docusate CAP* 100 MG PO SCH ×3 (10:02→21:30)
[2017-01-08] MEDS: HYDROcodone/ACETAMIN 5-325 MG* 1 TAB PO PRN (10:02)
--- NOTE | 2017-01-08 16:27 | PN ---
Progress Note - Progress Note Date of Service: 01/08/17 Note: Vern visited. She has no complaints. Her wants to take her home before the holiday this week. Otherwise, she is about the same. Current Medications Acetaminophen (Tylenol Tab*) 650 mg PO Q6H PRN PRN Reason: FEVER/PAIN Last Admin: 01/06/17 18:16 Dose: 650 mg Hydrocodone Bitart/Acetaminophen (Grant 5-325 Tab*) 1 tab PO Q4H PRN PRN Reason: PAIN - MODERATE TO SEVERE Last Admin: 01/08/17 10:02 Dose: 1 tab Aspirin (Aspirin Tab*) 325 mg PO DAILY [facility] Last Admin: 01/08/17 10:01 Dose: 325 mg Docusate Sodium (Colace Cap*) 100 mg PO BID [facility] Last Admin: 01/08/17 14:28 Dose: Not Given Donepezil HCl (Aricept Tab*) 10 mg PO DAILY [facility] Last Admin: 01/08/17 10:01 Dose: 10 mg Heparin Sodium (Porcine) (Heparin Vial(*)) 5,000 units SUBCUT Q8HR [facility] Last Admin: 01/08/17 14:10 Dose: 5,000 units Lactulose (Lactulose*) 30 ml PO Q6H PRN PRN Reason: CONSTIPATION Levothyroxine Sodium (Synthroid Tab*) 75 mcg PO DAILY@0600 [facility] Last Admin: 01/08/17 05:35 Dose: 75 mcg Magnesium Hydroxide (Milk Of Magnesia Liq*) 30 ml PO Q6H PRN PRN Reason: CONSTIPATION Prednisone (Deltasone Tab*) 10 mg PO DAILY [facility] Last Admin: 01/08/17 10:01 Dose: 10 mg Prednisone (Deltasone Tab*) 5 mg PO 1900 [facility] Last Admin: 01/07/17 18:03 Dose: 5 mg Senna (Senokot Tab*) 2 tab PO BEDTIME PRN PRN Reason: CONSTIPATION Sertraline HCl (Zoloft*) 100 mg PO DAILY [facility] Last Admin: 01/08/17 10:01 Dose: 100 mg Tramadol HCl (Ultram*) 50 mg PO Q6H PRN PRN Reason: PAIN - MODERATE Vital Signs Temp Pulse Resp BP Pulse Ox 97.5 F 69 18 86/44 99 01/08/17 15:58 01/08/17 15:58 01/08/17 15:58 01/08/17 15:58 01/08/17 15:58 EXAM: LUNGS: Clear bilaterally HEART: Reg rhythm ABDOMEN: Soft EXTREMITIES: Hip pinning site clean ASSESSMENT/PLAN: 1. Left hip fracture: PT/OT 2. DVT Prophylaxis: Heparin S/Q 3. PMR: Prednisone 4. Osteoporosis: will start Calcium 5. Alzheimer's Disease: MARCE Asher 6. Advanced Directives: Has STEPHANE, DNR
[2017-01-08] MEDS: predniSONE TAB* 5 MG PO SCH (18:00)
[2017-01-09] MEDS: Levothyroxine TAB* 75 MCG TAB PO SCH (05:12)
[2017-01-09] MEDS: Heparin VIAL(*) 5000 UNITS/ML VIAL (FIVE THOUSAND) SUBCUT SCH ×3 (05:12→22:36)
[2017-01-09] MEDS: Donepezil TAB* 5 MG PO SCH (09:25)
[2017-01-09] MEDS: Sertraline* 100 MG TAB PO SCH (09:26)
[2017-01-09] MEDS: predniSONE TAB* 10 MG PO SCH (09:26)
[2017-01-09] MEDS: Docusate CAP* 100 MG PO SCH ×2 (09:26→22:39)
[2017-01-09] MEDS: Aspirin TAB* 325 MG PO SCH (09:26)
--- NOTE | 2017-01-09 12:42 | PN ---
Progress Note - Progress Note Date of Service: 01/09/17 Note: Vern and her visited. He would like to take her home tomorrow. Therapy notes read and reviewed. Her safety will likely not get any better. GREGORIO called [facility] [employer] and they are ok with her leaving tomorrow. Current Medications Acetaminophen (Tylenol Tab*) 650 mg PO Q6H PRN PRN Reason: FEVER/PAIN Last Admin: 01/06/17 18:16 Dose: 650 mg Hydrocodone Bitart/Acetaminophen ([place] 5-325 Tab*) 1 tab PO Q4H PRN PRN Reason: PAIN - MODERATE TO SEVERE Last Admin: 01/08/17 10:02 Dose: 1 tab Aspirin (Aspirin Tab*) 325 mg PO DAILY [facility] Last Admin: 01/09/17 09:26 Dose: 325 mg Docusate Sodium (Colace Cap*) 100 mg PO BID [facility] Last Admin: 01/09/17 09:26 Dose: 100 mg Donepezil HCl (Aricept Tab*) 10 mg PO DAILY [facility] Last Admin: 01/09/17 09:25 Dose: 10 mg Heparin Sodium (Porcine) (Heparin Vial(*)) 5,000 units SUBCUT Q8HR [facility] Last Admin: 01/09/17 05:12 Dose: 5,000 units Lactulose (Lactulose*) 30 ml PO Q6H PRN PRN Reason: CONSTIPATION Levothyroxine Sodium (Synthroid Tab*) 75 mcg PO DAILY@0600 [facility] Last Admin: 01/09/17 05:12 Dose: 75 mcg Magnesium Hydroxide (Milk Of Magnesia Liq*) 30 ml PO Q6H PRN PRN Reason: CONSTIPATION Prednisone (Deltasone Tab*) 10 mg PO DAILY [facility] Last Admin: 01/09/17 09:26 Dose: 10 mg Prednisone (Deltasone Tab*) 5 mg PO 1900 [facility] Last Admin: 01/08/17 18:00 Dose: 5 mg Senna (Senokot Tab*) 2 tab PO BEDTIME PRN PRN Reason: CONSTIPATION Sertraline HCl (Zoloft*) 100 mg PO DAILY [facility] Last Admin: 01/09/17 09:26 Dose: 100 mg Tramadol HCl (Ultram*) 50 mg PO Q6H PRN PRN Reason: PAIN - MODERATE Vital Signs Temp Pulse Resp BP Pulse Ox 97.1 F 63 16 119/71 100 01/09/17 06:16 01/09/17 06:16 01/09/17 08:00 01/09/17 06:16 01/09/17 08:00 EXAM: LUNGS: Clear bilaterally HEART: Reg rhythm ABDOMEN: Soft EXTREMITIES: Hip pinning site clean ASSESSMENT/PLAN: 1. Left hip fracture: PT/OT 2. DVT Prophylaxis: Heparin S/Q 3. PMR: Prednisone 4. Osteoporosis: will start Calcium 5. Alzheimer's Disease: MARCE Asher 6. Advanced Directives: Has STEPHANE, DNR 7. Disposition: home with tomorrow (with home health services through [facility])
[2017-01-09] MEDS: predniSONE TAB* 5 MG PO SCH (18:56)
[2017-01-10] MEDS: Heparin VIAL(*) 5000 UNITS/ML VIAL (FIVE THOUSAND) SUBCUT SCH (06:28)
[2017-01-10] MEDS: Levothyroxine TAB* 75 MCG TAB PO SCH (06:30)
[2017-01-10 06:34] VITALS: BP 131/66
[2017-01-10] MEDS: Docusate CAP* 100 MG PO SCH (08:56)
[2017-01-10] MEDS: Donepezil TAB* 5 MG PO SCH (08:56)
[2017-01-10] MEDS: Sertraline* 100 MG TAB PO SCH (08:56)
[2017-01-10] MEDS: Aspirin TAB* 325 MG PO SCH (08:56)
[2017-01-10] MEDS: predniSONE TAB* 10 MG PO SCH (08:56)
--- NOTE | 2017-01-11 08:22 | DS ---
CC: Dr Tata Bolton * DISCHARGE SUMMARY: DATE OF ADMISSION: 01/05/17. DATE OF DISCHARGE: 01/10/17. DISCHARGE DIAGNOSES: 1. Right hip fracture. 2. Alzheimer's disease. 3. Polymyalgia rheumatica. 4. Hypothyroidism. 5. Osteoporosis. 6. Paroxysmal atrial fibrillation. 7. Chronic hypokalemia. HISTORY OF ILLNESS AND HOSPITAL COURSE: For complete history of the events leading up to her rehab stay, please see the history and physical dictated by me on 01/05/17. While on the rehab unit, she was largely medically stable. The patient's wound appear to be clean and healing well. She was maintained on heparin for DVT prophylaxis. The patient was seen by both physical and occupational therapy and made good gains with both disciplines. With physical therapy at the time of admission, the patient required maximum amount of assistance to do bed mobility, max assistance of 2 people to do a transfer. She was unable to ambulate. With occupational therapy, she was moderate assistance for upper body dressing, total assistance for lower body dressing, total assistance for bathing, total assistance for toileting and total assistance for toilet transfers. By the time of discharge, the patient was set up for upper body dressing, setup for lower body dressing; toileting was min assist, toilet transfers were min assist. With physical therapy, she was supervision for transfers, supervision ambulating 150 feet, contact guard to supervision for stair climbing. The patient's felt confident to bring her home. She discharged home on 01/10/17. DISCHARGE DIET: Regular. DISCHARGE MEDICATIONS: Included: 1. Aricept 10 mg daily. 2. Aspirin 325 mg daily. 3. Glendo 5/325 one tablet every 4 hours as needed, not to exceed 2 per day. 4. Synthroid 75 mcg daily. 5. Prednisone 10 mg in the morning and 5 mg in the evening. 6. Zoloft 100 mg daily. 7. Vitamin E 400 units daily. SERVICES AFTER DISCHARGE: Through visiting nursing service, she will have home nursing, home physial therapy. Follow up with her primary care doctor, Dr Tata Bolton as well as her orthopedic surgeon, Dr. Hilton Ramos. [id number]/[facility] #: [id number] MTDD
== END 2017-01-10 11:20 | disposition home health service (06) | DRG 561 ==
LOC: PMRU 11:06
PROVIDERS: ADMIT Physical Medicine & Rehabilitation; ATTEND Physical Medicine & Rehabilitation
PROC: F07Z5ZZ Bed Mobility Treatment (ICD-10-PCS; principal; 2017-01-05)
PROC: F07Z9ZZ Gait Training/Functional Ambulation Treatment (ICD-10-PCS; 2017-01-05)
PROC: F07Z8ZZ Transfer Training Treatment (ICD-10-PCS; 2017-01-05)
PROC: F08Z0ZZ Bathing/Showering Techniques Treatment (ICD-10-PCS; 2017-01-05)
PROC: F08Z1ZZ Dressing Techniques Treatment (ICD-10-PCS; 2017-01-05)
PROC: F08Z3ZZ Feeding/Eating Treatment (ICD-10-PCS; 2017-01-05)
DX: S72.011D Unspecified intracapsular fracture of right femur, subsequent encounter for closed fracture with routine healing (principal); I48.0 Paroxysmal atrial fibrillation; G30.9 Alzheimer's disease, unspecified; F02.80 Dementia in other diseases classified elsewhere, unspecified severity, without behavioral disturbance, psychotic disturbance, mood disturbance, and anxiety; W18.09XD Striking against other object with subsequent fall, subsequent encounter; M35.3 Polymyalgia rheumatica; M81.0 Age-related osteoporosis without current pathological fracture; E03.9 Hypothyroidism, unspecified; E87.6 Hypokalemia; Z79.01 Long term (current) use of anticoagulants; Z79.82 Long term (current) use of aspirin; Z79.52 Long term (current) use of systemic steroids; Z79.899 Other long term (current) drug therapy; Z88.1 Allergy status to other antibiotic agents; Z88.2 Allergy status to sulfonamides; Z88.8 Allergy status to other drugs, medicaments and biological substances
CPT/HCPCS: 36415; 80053; 85025; A9270-GY; J1644; J7512

== ENCOUNTER 2017-04-23 16:37 | Emergency (ER) | payer MEDICARE, OTHER ==
[2017-04-23 16:47] VITALS: BP 131/78
[2017-04-23] MEDS ORDERED: Cephalexin CAP* 500 MG PO ONE (17:45)
--- NOTE | 2017-04-23 17:46 | UC ---
Complaint Female HPI - HPI Summary HPI Summary: Pt presents with right flank pain that began earlier today. Pt has dementia and often looks to her when asked a question. Her tells me that he is her primary finance assistant and has noticed her mention that she has some right flank pain for a day or two, but really started complaining about it earlier today. She is still eating and drinking as per her normal - per . He denies her having a fever, abdominal pain, n/v/d/c. - History Of Current Complaint Chief Complaint: UCGU Stated Complaint: ABD PAIN Time Seen by Provider: 04/23/17 16:58 Hx Obtained From: Patient, Family/Size Painter Hx From Patient Unobtainable Due To: Dementia Severity Initially: Moderate Severity Currently: Moderate Pain Intensity: 6 Pain Scale Used: 0-10 Numeric - Allergies/Home Medications Allergies/Adverse Reactions: Allergies Allergy/AdvReac Type Severity Reaction Status Date / Time erythromycin base Allergy Unknown Verified 04/23/17 16:51 Reaction Details Sulfa (Sulfonamide Allergy Unknown Verified 04/23/17 16:51 Antibiotics) Reaction Details venlafaxine [From Effexor] Allergy Unknown Verified 04/23/17 16:51 Reaction Details PMH/Surg Hx/FS Hx/Imm Hx Endocrine History: Thyroid Disease Neurological History: Dementia - Surgical History Surgical History: Yes Surgery Procedure, Year, and Place: Appendectomy 30 yrs ago. Right hip - Family History Known Family History: Positive: None Negative: Hypertension, Diabetes - Social History Occupation: Retired Lives: With Family Alcohol Use: Daily Alcohol Amount: Occasional glass of wine a few times a week Substance Use Type: None Smoking Status (MU): Former Smoker Have You Smoked in the Last Year: No When Did the Patient Quit Smoking/Using Tobacco: 25 yrs - Immunization History Most Recent Influenza Vaccination: 11/24/2016 Most Recent Pneumonia Vaccination: within last 10 years Review of Systems Constitutional: Negative Skin: Negative Respiratory: Negative Cardiovascular: Negative Gastrointestinal: Negative Genitourinary: Other - Right flank pain Neurological: Negative Psychological: Negative All Other Systems Reviewed And Are Negative: Yes Physical Exam - Summary Physical Exam Summary: GENERAL: NAD. WDWN. No pain distress. SKIN: No rashes, sores, ulcers, masses, lesions. NECK: Supple. Nontender. No lymphadenopathy. CHEST: CTAB. No r/r/w. No accessory muscle use. Breathing comfortably and in no distress. CV: RRR. Without m/r/g. Pulses intact. Brisk cap refill. ABDOMEN: Soft. NTTP. No distention or guarding. No organomegaly. No CVA tenderness. Bowel sounds present x4. NEURO: Altered due to dementia. states that this is her baseline and is no better/worse. PSYCH: Age appropriate behavior. Triage Information Reviewed: Yes Vital Signs: Initial Vital Signs Temp 96.6 F 04/23/17 16:44 Pulse 89 04/23/17 16:44 Resp 18 04/23/17 16:44 BP 131/78 04/23/17 16:44 Pulse Ox 100 04/23/17 16:44 Complaint Female Dx - Course Course Of Treatment: UA with 3+ blood, 1+ protein, and 1+ leuks. She has no history of kidney stone. I spoke with the regarding these findings and seeking further evaluation in the ED for potential kidney stone vs. treating as if a UTI on an outpatient basis. The elected to try outpatient po antibiotics, but understood and agreed to take her to the ED if her symptoms worsen or persist despite antibiotic treatment. - Differential Dx/Diagnosis Provider Diagnoses: UTI. Right flank pain Discharge - Discharge Plan Condition: Stable Disposition: HOME Prescriptions: Cephalexin CAP* [Keflex CAP*] 500 mg PO BID #14 cap Patient Education Materials: Urinary Tract Infection in Women (DC) Referrals: Tata Bolton MD [Primary Care Provider] - Additional Instructions: If you develop a fever, shortness of breath, chest pain, new or worsening symptoms - please call your PCP or go to the ED. 1) If your symptoms worsen or do not improve over the next 48 hours - please go directly to the Emergency Room.
== END 2017-04-23 18:03 | disposition home or self-care (01) ==
LOC: UCEAST 16:37
DX: N39.0 Urinary tract infection, site not specified (principal); R10.9 Unspecified abdominal pain; Z87.891 Personal history of nicotine dependence; F03.90 Unspecified dementia, unspecified severity, without behavioral disturbance, psychotic disturbance, mood disturbance, and anxiety; Z88.2 Allergy status to sulfonamides; E07.9 Disorder of thyroid, unspecified
CPT/HCPCS: 81003; 87086; 99212; A9270-GY; G0463

== ENCOUNTER 2017-06-05 13:37 | Emergency (ER) | payer MEDICARE, OTHER ==
[2017-06-05 13:57] VITALS: BP 132/103
--- NOTE | 2017-06-05 17:45 | UC ---
Zohaib Chavira Angela, scribed for Kailash Castillo MD on 06/05/17 at 1409 . General HPI - HPI Summary HPI Summary: This pt is a 81 y/o female, accompanied by her , presenting to [facility] c/o decreased hearing for a few days now, worse today. Pt has hx of Alzheimer's disease and is demented. History is given by the pt's . reports the pt began having difficulty hearing a few days ago. This morning, pt had significantly decreased hearing from bilateral ears, per . Pt denies pain , ringing from the ears, sore throat, nasal discharge. She denies any other symptoms. - History of Current Complaint Chief Complaint: UCEar Stated Complaint: TROUBLE HEARING OUT OF BOTH EARS Time Seen by Provider: 06/05/17 13:59 Hx Obtained From: Family/Rail Switchman - Onset/Duration: Lasting Days, Still Present Timing: Constant Current Severity: None Pain Intensity: 0 - denies pain Associated Signs & Symptoms: Positive: Other - NEG: ear pain, ear ringing, sore throat, nasal discharge.. Negative: Fever - Allergy/Home Medications Allergies/Adverse Reactions: Allergies Allergy/AdvReac Type Severity Reaction Status Date / Time erythromycin base Allergy Unknown Verified 06/05/17 13:50 Reaction Details Sulfa (Sulfonamide Allergy Unknown Verified 06/05/17 13:50 Antibiotics) Reaction Details venlafaxine [From Effexor] Allergy Unknown Verified 06/05/17 13:50 Reaction Details Home Medications: Home Medications Sertraline HCl [Zoloft] 75 mg PO DAILY 06/05/17 [History Confirmed 06/05/17] predniSONE TAB* [Deltasone TAB*] 7 mg PO 1900 06/05/17 [History Confirmed ] PMH/Surg Hx/FS Hx/Imm Hx Endocrine History: Thyroid Disease Other Neurological History: Alzheimer's disease - Surgical History Surgical History: Yes Surgery Procedure, Year, and Place: Appendectomy 30 yrs ago. Right hip - Family History Known Family History: Negative: Hypertension, Diabetes - Social History Alcohol Use: Daily Alcohol Amount: Occasional glass of wine a few times a week Substance Use Type: None Smoking Status (MU): Former Smoker Have You Smoked in the Last Year: No When Did the Patient Quit Smoking/Using Tobacco: 40 years - Immunization History Most Recent Influenza Vaccination: 11/24/2016 Most Recent Pneumonia Vaccination: within last 10 years Review of Systems Constitutional: Negative Skin: Negative Eyes: Negative ENT: Other - POS: decreased hearing. NEG: ear pain, ear ringing, sore throat, nasal discharge. Respiratory: Negative Cardiovascular: Negative Gastrointestinal: Negative Genitourinary: Negative Motor: Negative Neurovascular: Negative Musculoskeletal: Negative Neurological: Negative Psychological: Negative All Other Systems Reviewed And Are Negative: Yes Physical Exam - Summary Physical Exam Summary: VITAL SIGNS: Reviewed. GENERAL: Patient is a well-developed and nourished female who is lying comfortable in the stretcher. Patient is not in any acute respiratory distress. HEAD AND FACE: Normocephalic EYES: PERRLA, EOMI x 2. EARS: Cerumen seen in bilateral ears. MOUTH: Oropharynx within normal limits. NECK: Supple, trachea is midline, no adenopathy, no JVD, no carotid bruit. CHEST: Symmetric, no tenderness at palpation LUNGS: Clear to auscultation bilaterally. No wheezing or crackles. CVS: Regular rate and rhythm, S1 and S2 present, no murmurs or gallops appreciated. ABDOMEN: Soft, non-tender. Bowel sounds are normal. No abdominal abnormal pulsations. EXTREMITIES: Full ROM in all major joints, no edema, no cyanosis or clubbing. NEURO: Alert but not oriented. No acute neurological deficits. Speech is normal and follows commands. SKIN: Dry and warm Triage Information Reviewed: Yes Vital Signs: Initial Vital Signs Temp 97.6 F 06/05/17 13:51 Pulse 55 06/05/17 13:51 Resp 16 06/05/17 13:51 BP 132/103 06/05/17 13:51 Pulse Ox 100 06/05/17 13:51 Vital Signs Reviewed: Yes Course/Dx - Course Course Of Treatment: This pt is a 81 y/o female, accompanied by her , presenting to [facility] c/o decreased hearing for a few days now, worse today. Pt has hx of Alzheimer's disease and is demented. History is given by the pt's . reports the pt began having difficulty hearing a few days ago. This morning, pt had significantly decreased hearing from bilateral ears, per . Pt denies pain, ringing from the ears, sore throat, nasal discharge. She denies any other symptoms. In the UC course the pt had her ears irrigated. Pts hearing has improved after cerumen was removed. Therefore she will be discharged home. All questions were answered to patient and satisfaction. There were no further complaints or concerns. Pt will be discharged to home with follow up from PCP. Pt is hemodynamically stable, alert and not oriented, at baseline. The patient was found to have increased blood pressure in UC. The patient will follow up with PCP for better control of BP. - Differential Dx - Multi-Symptom Provider Diagnoses: Cerumen Impaction Discharge - Sign-Out/Discharge Documenting (check all that apply): Discharge - discharge to home - Discharge Plan Condition: Stable Disposition: HOME Patient Education Materials: Cerumen Impaction (ED) Referrals: Tata Bolton MD [Primary Care Provider] - Additional Instructions: FOLLOW UP WITH YOUR PRIMARY CARE PROVIDER WITHIN ONE WEEK FOR HIGH BLOOD PRESSURE NOTED TODAY. RETURN TO URGENT CARE OR THE ED FOR ANY WORSENING OR NEW SYMPTOMS. The documentation as recorded by the Zohaib kasper Angela accurately reflects the service I personally performed and the decisions made by , Kailash Castillo MD.
== END 2017-06-05 14:39 | disposition home or self-care (01) ==
LOC: UCEAST 13:37
DX: H61.23 Impacted cerumen, bilateral (principal); Z87.891 Personal history of nicotine dependence; Z88.3 Allergy status to other anti-infective agents; Z88.2 Allergy status to sulfonamides; Z88.8 Allergy status to other drugs, medicaments and biological substances
CPT/HCPCS: 69210; 99211; G0463

== ENCOUNTER 2018-01-15 19:41 | Emergency (ER) | payer MEDICARE, OTHER ==
[2018-01-15] MEDS ORDERED: NS 0.9% 1000 ML* 1,000 ML IV ONE (19:51)
--- NOTE | 2018-01-15 19:52 | ED ---
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 Per : He found the patient on the floor on her back after she fell to the ground indoors. She did say she felt faint prior to falling. He does not think she had a LOC. Pt was able to stand and ambulate with assistance from EMS when they arrived on scene. He believes the patient was well and at baseline during the day. Chief complaint is RUE pain. She denies abd pain, CP, bilat leg pain. - History of Current Complaint Stated Complaint: FALL Time Seen by Provider: 01/15/18 19:45 Hx Obtained From: Patient, Family/Fulling Mill Operator, EMS Mechanism of Injury: Fall Ambulatory at the Scene: Yes Loss of Consciousness: no loss of consciousness Onset/Duration: Still Present Onset of Pain: Immediate, Post Accident Onset Severity: Moderate Current Severity: Moderate Pain Intensity: 4 Pain Scale Used: 0-10 Numeric Location: Extremities - RUE Associated Signs & Symptoms: Negative: Chest Pain, Abdominal Pain, Other: - neg : bilat leg pain - Additional Pertinent History Primary Care Physician: [id number] - Allergy/Home Medications Allergies/Adverse Reactions: Allergies Allergy/AdvReac Type Severity Reaction Status Date / Time erythromycin base Allergy Unknown Verified 06/05/17 13:50 Reaction Details Sulfa (Sulfonamide Allergy Unknown Verified 06/05/17 13:50 Antibiotics) Reaction Details venlafaxine [From Effexor] Allergy Unknown Verified 06/05/17 13:50 Reaction Details PMH/Surg Hx/FS Hx/Imm Hx Previously Healthy: No Endocrine/Hematology History: Reports: Hx Thyroid Disease Denies: Hx Diabetes Cardiovascular History: Reports: Other Cardiovascular Problems/Disorders - recent diagnosis of Afib 11/22/16 Denies: Hx Hypertension, Hx Pacemaker/ICD Respiratory History: Denies: Hx Asthma, Hx Chronic Obstructive Pulmonary Disease (COPD) GI History: Reports: Hx Diverticulosis, Other GI Disorders - diverticulosis, internal hemerhoids Denies: Hx Ulcer History: Reports: Other Problems/Disorders - incontinence Musculoskeletal History: Reports: Hx Back Problems - L2 fx 04/2016, Hx Osteoporosis Sensory History: Reports: Hx Hearing Problem Denies: Hx Contacts or Glasses, Hx Deafness, Hx Hearing Aid Opthamlomology History: Denies: Hx Contacts or Glasses Neurological History: Reports: Hx Dementia - Alzheimer's, Other Neuro Impairments/Disorders - periphereal neuropathy Psychiatric History: Reports: Hx Anxiety, Hx Depression, Other Psychiatric Issues/Disorders - Alzeimers dementia Denies: Hx Panic Disorder - Cancer History Hx Chemotherapy: No Hx Radiation Therapy: No - Surgical History Surgery Procedure, Year, and Place: Appendectomy 30 yrs ago. Right hip Infectious Disease History: Denies: Hx Clostridium Difficile, Hx Hepatitis, Hx Human Immunodeficiency Virus (HIV), Hx of Known/Suspected MRSA, Hx Shingles, Hx Tuberculosis, Hx Known/ Suspected VRE, Hx Known/Suspected VRSA, History Other Infectious Disease - Family History Known Family History: Positive: None Negative: Hypertension, Diabetes - Social History Occupation: Retired Lives: With Family Alcohol Use: Daily Alcohol Amount: Occasional glass of wine a few times a week Hx Substance Use: No Substance Use Type: Reports: None Hx Tobacco Use: Yes Smoking Status (MU): Former Smoker Have You Smoked in the Last Year: No Review of Systems Negative: Chest Pain Negative: Abdominal Pain Positive: Other - pos: RUE; neg: bilat LE pain All Other Systems Reviewed And Are Negative: Yes Physical Exam - Summary Physical Exam Summary: Appearance: Well-appearing, Well-nourished, lying in bed comfortably Skin: Warm, dry, no obvious rash Eyes: sclera anicteric, no conjunctival pallor ENT: mucous membranes moist, pharynx appears normal Neck: Supple, nontender Respiratory: Clear to auscultation, no signs of respiratory distress Cardiovascular: Normal S1, S2. No murmurs. Normal distal pulses in tibial and radial bilaterally. Abdomen: Soft, nontender, normal active bowel sounds present Musculoskeletal: Strength/ROM Intact. Tenderness to L lower anterior chest, tenderness to R proximal humerus. Neurological: A&Ox3, awake and alert, somewhat confused and unable to remember led to her coming here, mentation is otherwise normal, speech is fluent and appropriate Psychiatric: affect is normal, does not appear anxious or depressed Triage Information Reviewed: Yes Vital Signs Reviewed: Yes Diagnostics - Laboratory Result Diagrams: 01/15/18 20:04 01/15/18 20:04 Lab Statement: Any lab studies that have been ordered have been reviewed, and results considered in the medical decision making process. - Radiology Ribs with Chest Radiology Interpretation Completed By: ED Physician Summary of Radiographic Findings: Negative Shoulder XR Radiology Interpretation Completed By: ED Physician Summary of Radiographic Findings: Negative Re-Evaluation - Re-Evaluation 1 Re-Evaluation Time: 21:04 Change: Improved Comment: Discussing results with pt. Pt feeling improved, will DC home. Adult Trauma Course/Dx - Course Course Of Treatment: Pt is an 82 y/o F with Alz presenting status post unwitnessed fall. found the patient on the floor on her back after she fell to the ground indoors. He does not think she had a LOC. Pt was able to stand and ambulate with assistance from EMS. He believes the patient was well and at baseline during the day. Chief complaint is RUE pain. She denies abd pain , CP, bilat leg pain. Shoulder XR and Ribs with Chest XR are both negative. Lab work is unremarkable except mild hypokalemia. Pt will be discharged home to f/u with her PCP in 2 days. - Diagnoses Provider Diagnoses: Fall, Contusion of chest, Contusion of right shoulder, Hypokalemia Discharge - Sign-Out/Discharge Documenting (check all that apply): Patient Departure - DC - Discharge Plan Condition: Good Disposition: HOME Patient Education Materials: Hypokalemia (ED), Fall Prevention for Older Adults (ED), Contusion in Adults (ED) Referrals: Tata Bolton MD [Primary Care Provider] - 2 Days (if not better) - Billing Disposition and Condition Condition: GOOD Disposition: Home - Attestation Statements Document Initiated by Amandaibe: Yes Documenting Scribe: Rachel Reid Provider For Whom Scribe is Documenting (Include Credential): Dr. Miguel Gavin MD Scribe Attestation: Rachel Chavira scribed for Dr. Miguel Gavin MD on 01/16/18 at 0458. Scribe Documentation Reviewed: Yes Provider Attestation: The documentation as recorded by the Rachel kasper accurately reflects the service I personally performed and the decisions made by me, Dr. Miguel Gavin MD
[2018-01-15 20:15] LABS: ABS Basophils 0 10^3/ul (0-0.2); ABS Eosinophils 0.2 10^3/ul (0-0.6); ABS Lymphocytes 2.5 10^3/ul (1.0-4.8); ABS Monocytes 0.5 10^3/ul (0-0.8); ABS Nucleated RBC 0 10^3/ul; Eosinophil % 2.3 %; Hematocrit 38 % (35-47); Hemoglobin 13.4 g/dl (12.0-16.0); Lymphocyte % 30.3 %; Mean Corpuscular HGB Conc 35 g/dl (31-36); Mean Corpuscular Hemoglobin 33 pg (27-31); Mean Corpuscular Volume 95 fL (80-97); Mean Platelet Volume 8.5 fL (7.4-10.4); Nucleated Red Blood Cells % 0; Platelet Count 180 10^3/ul (150-450); Red Blood Count 4.06 10^6/ul (4.00-5.40); Red Cell Distribution Width 13 % (10.5-15); White Blood Count 8.3 10^3/ul (3.5-10.8)
[2018-01-15 20:46] LABS: EGFR Non-African American 55.3 (>60)
[2018-01-15] MEDS ORDERED: Potassium Chlor TAB* 20 MEQ TAB.ER PO ONE (21:01)
[2018-01-15 21:18] VITALS: BP 133/79
--- NOTE | 2018-01-16 08:50 | ED ---
Re-Evaluation - Re-Evaluation 1 Re-Evaluation Time: 21:04 Change: Improved Comment: Discussing results with pt. Pt feeling improved, will DC home. Course/Dx - Course Course Of Treatment: Called by Dr. Esteves for DONYA 1.5 cm nodule. Requires CT chest w iv contrast. I discussed this with Dr. Karolina Nuñez at her office, and she agreed to communicate this to Dr. Bolton. Plan for CT to be facilitated by PCP. - Diagnoses Provider Diagnoses: Fall, Contusion of chest, Contusion of right shoulder, Hypokalemia, Pulmonary nodule Discharge - Sign-Out/Discharge Documenting (check all that apply): Post-Discharge Follow Up - Discharge Plan Condition: Good Disposition: HOME Patient Education Materials: Hypokalemia (ED), Fall Prevention for Older Adults (ED), Contusion in Adults (ED) Referrals: Tata Bolton MD [Primary Care Provider] - 2 Days (if not better) - Billing Disposition and Condition Condition: GOOD Disposition: Home
== END 2018-01-15 21:18 | disposition home or self-care (01) ==
LOC: ED 19:41
DX: S40.011A Contusion of right shoulder, initial encounter (principal); S20.219A Contusion of unspecified front wall of thorax, initial encounter; W19.XXXA Unspecified fall, initial encounter; Y92.9 Unspecified place or not applicable; R91.1 Solitary pulmonary nodule; E87.6 Hypokalemia
CPT/HCPCS: 36415; 80048; 83605; 84443; 85025; 96360; 99282; A9270-GY